=== PATIENT | male | born 1955 | race Caucasian/White ===

== ENCOUNTER → 2016-08-13 | Outpatient (CLI) | payer BC ==
[2016-04-05 15:15] VITALS: BP 113/71
[~2016-08-13] MED LIST: ACID1TAB14 PO; CEFD300C PO; DILT120C2 PO; DILT180C29 PO; HYDR-2762 PO; HYDR25CA PO; MESA400C PO; METO25TA4 PO; METR500T PO; MULT-246 PO; OMEP20TA63 PO; PRED20TA PO; TAMS0.4C97 PO; WARF5TAB7 PO
== END | disposition home or self-care (01) ==
LOC: SPEC 16:49
PROVIDERS: ATTEND Podiatrist Foot & Ankle Surgery
DX: L97.521 Non-pressure chronic ulcer of other part of left foot limited to breakdown of skin (principal)
CPT/HCPCS: 87071; 87075; 87205

== ENCOUNTER 2017-06-22 06:05 | Emergency (ER) | payer OTHER, BC ==
[2017-06-22 06:44] LABS: BILIRUBIN,URINE NEGATIVE (NEG); COLOR,URINE AMBER; GLUCOSE,URINE NEGATIVE (NEG); NITRITE,URINE NEGATIVE (NEG); PH,URINE 6.5; PROTEIN,URINE 30 mg/dL (NEG-TRACE); UROBILINOGEN,URINE 0.2 mg/dL (0.2 mg/dL)
[2017-06-22 06:53] LABS: ADD MAN DIFF? NO
[2017-06-22 07:04] LABS: BASO # 0.1 x10^3/uL (0.0-0.2); BASO % 1 % (0-3); EOS # 0.1 x10^3/uL (0.0-0.7); EOS % 2 % (0-3); HEMATOCRIT 39.3 % (39.0-53.0); LYMPH % 13 % (24-48); MEAN CORPUSCULAR HEMOGLOBIN 30 pg (25-35); MEAN CORPUSCULAR HGB CONC 33 g/dL (31-37); MEAN CORPUSCULAR VOLUME 89 fL (79-100); MONO % 13 % (0-9); NEUT # 5.4 x10^3uL (1.8-7.7); NEUT % 71 % (31-73); PLATELET COUNT 208 x10^3/uL (140-400); RED CELL DISTRIBUTION WIDTH 13.6 % (11.5-14.5); WHITE BLOOD COUNT 7.6 x10^3/uL (4.0-11.0)
[2017-06-22 07:15] LABS: ANION GAP 6 (6-14); BLOOD UREA NITROGEN 20 mg/dL (8-26); BUN/CREATININE RATIO 25 (6-20); CALCIUM 8.9 mg/dL (8.5-10.1); CARBON DIOXIDE 29 mmol/L (21-32); CHLORIDE 101 mmol/L (98-107); CREATININE 0.8 mg/dL (0.7-1.3); GFR 97.6; GLUCOSE 121 mg/dL (70-99); POTASSIUM 3.7 mmol/L (3.5-5.1); SODIUM 136 mmol/L (136-145)
[2017-06-22 07:17] LABS: BACTERIA,URINE FEW /HPF (0-FEW); CLARITY,URINE HAZY; RBC,URINE >40 /HPF (0-2); SQUAMOUS EPITHELIAL CELL,UR OCC /LPF
[2017-06-22 07:20] LABS: ALBUMIN 3.3 g/dL (3.4-5.0); ALBUMIN/GLOBULIN RATIO 0.8 (1.0-1.7); ALK PHOS 84 U/L (46-116); ALT (SGPT) 22 U/L (16-63); AST (SGOT) 17 U/L (15-37); TOTAL BILIRUBIN 0.3 mg/dL (0.2-1.0); TOTAL PROTEIN 7.2 g/dL (6.4-8.2)
[2017-06-22 07:32] LABS: INR 1.1 (0.8-1.1); PROTHROMBIN TIME PATIENT 13.8 SEC (11.7-14.0)
== END 2017-06-22 07:45 | disposition home or self-care (01) ==
LOC: ER 06:05
DX: N39.0 Urinary tract infection, site not specified (principal); I48.91 Unspecified atrial fibrillation; F41.9 Anxiety disorder, unspecified; F32.9 Major depressive disorder, single episode, unspecified; I10 Essential (primary) hypertension; N40.0 Benign prostatic hyperplasia without lower urinary tract symptoms; Z88.2 Allergy status to sulfonamides
CPT/HCPCS: 36415; 80053; 81001; 85025; 85610; 87086; 99284

== ENCOUNTER 2017-06-23 08:18 | Emergency (ER) | payer OTHER, BC ==
[2017-06-23] MEDS ORDERED: 0.9 % SODIUM CHLORIDE 10 ML DISP.SYRIN. IV ×2 (08:45)
[2017-06-23] MEDS ORDERED: CONTRAST GIVEN MC ×2 (09:15)
[2017-06-23] MEDS: IOHEXOL 300 MG/ML 100ML VIAL. IV ×2 (09:19)
[2017-06-23 09:22] LABS: ADD MAN DIFF? NO
[2017-06-23 09:28] LABS: CLARITY,URINE TURBID; COLOR,URINE RED; GLUCOSE,URINE NEGATIVE (NEG); PROTEIN,URINE 100 mg/dL (NEG-TRACE)
[2017-06-23 09:31] LABS: BASO # 0.1 x10^3/uL (0.0-0.2); BASO % 1 % (0-3); EOS # 0.1 x10^3/uL (0.0-0.7); EOS % 1 % (0-3); HEMOGLOBIN 13.5 g/dL (13.0-17.5); LYMPH # 1.1 x10^3/uL (1.0-4.8); LYMPH % 11 % (24-48); MEAN CORPUSCULAR HEMOGLOBIN 30 pg (25-35); MEAN CORPUSCULAR HGB CONC 34 g/dL (31-37); MEAN CORPUSCULAR VOLUME 87 fL (79-100); MONO % 10 % (0-9); NEUT # 7.8 x10^3uL (1.8-7.7); NEUT % 78 % (31-73); PLATELET COUNT 214 x10^3/uL (140-400); RED BLOOD COUNT 4.58 x10^6/uL (4.30-5.70); RED CELL DISTRIBUTION WIDTH 13.8 % (11.5-14.5)
[2017-06-23 09:43] LABS: RBC,URINE TNTC /HPF (0-2)
[2017-06-23 09:44] LABS: BACTERIA,URINE FEW /HPF (0-FEW)
[2017-06-23 09:50] LABS: ANION GAP 8 (6-14); BLOOD UREA NITROGEN 18 mg/dL (8-26); CALCIUM 9.2 mg/dL (8.5-10.1); CARBON DIOXIDE 28 mmol/L (21-32); CHLORIDE 102 mmol/L (98-107); CREATININE 0.8 mg/dL (0.7-1.3); GFR 97.6; GLUCOSE 110 mg/dL (70-99); POTASSIUM 4.1 mmol/L (3.5-5.1); SODIUM 138 mmol/L (136-145)
[2017-06-23] MEDS: IV NORMAL SALINE 1000ML BAG 1,000 ML IV ×2 (09:51)
[2017-06-23 09:56] LABS: ALBUMIN 3.4 g/dL (3.4-5.0); ALK PHOS 96 U/L (46-116); ALT (SGPT) 16 U/L (16-63); AST (SGOT) 17 U/L (15-37); CREATINE KINASE 134 U/L (39-308); DIRECT BILIRUBIN 0.1 mg/dL (0.0-0.2); TOTAL BILIRUBIN 0.4 mg/dL (0.2-1.0); TOTAL PROTEIN 7.7 g/dL (6.4-8.2)
== END 2017-06-23 11:19 | disposition home or self-care (01) ==
LOC: ER 08:18
DX: R31.9 Hematuria, unspecified (principal); N28.89 Other specified disorders of kidney and ureter; N32.89 Other specified disorders of bladder; I10 Essential (primary) hypertension; Z88.2 Allergy status to sulfonamides
CPT/HCPCS: 36415; 74177; 80048; 80076; 81001; 82550; 85025; 87086; 96360; 99285-25; J7030; Q9967

== ENCOUNTER → 2017-08-19 | Outpatient (CLI) | payer OTHER, BC | END | disposition home or self-care (01) | LOC: ECHO 10:36 | DX: Z01.810 Encounter for preprocedural cardiovascular examination (principal); I34.0 Nonrheumatic mitral (valve) insufficiency; I35.1 Nonrheumatic aortic (valve) insufficiency | CPT/HCPCS: 93306 ==

== ENCOUNTER 2017-11-18 09:44 | Inpatient (IN) | payer SELFPAY, BC, OTHER ==
[2017-11-18 10:02] LABS: ADD MAN DIFF? NO
[2017-11-18 10:05] LABS: BASO # 0.1 x10^3/uL (0.0-0.2); BASO % 1 % (0-3); EOS % 0 % (0-3); HEMATOCRIT 30.6 % (39.0-53.0); LYMPH # 2.1 x10^3/uL (1.0-4.8); LYMPH % 16 % (24-48); MEAN CORPUSCULAR HEMOGLOBIN 27 pg (25-35); MEAN CORPUSCULAR HGB CONC 33 g/dL (31-37); MEAN CORPUSCULAR VOLUME 82 fL (79-100); MONO # 1.4 x10^3/uL (0.0-1.1); MONO % 11 % (0-9); NEUT # 9.2 x10^3uL (1.8-7.7); NEUT % 72 % (31-73); PLATELET COUNT 552 x10^3/uL (140-400); RED BLOOD COUNT 3.72 x10^6/uL (4.30-5.70); RED CELL DISTRIBUTION WIDTH 15.1 % (11.5-14.5); WHITE BLOOD COUNT 12.9 x10^3/uL (4.0-11.0)
[2017-11-18] MEDS: IV NORMAL SALINE 500ML BAG 500 ML IV (10:06)
[2017-11-18] MEDS: dilTIAZem IV PUSH 25 MG/5 ML VIAL IVP (10:07)
[2017-11-18 10:14] LABS: ANION GAP 11 (6-14); BLOOD UREA NITROGEN 17 mg/dL (8-26); BUN/CREATININE RATIO 14 (6-20); CALCIUM 8.1 mg/dL (8.5-10.1); CARBON DIOXIDE 24 mmol/L (21-32); CHLORIDE 100 mmol/L (98-107); CREATININE 1.2 mg/dL (0.7-1.3); GLUCOSE 124 mg/dL (70-99); POTASSIUM 4.2 mmol/L (3.5-5.1); SODIUM 135 mmol/L (136-145)
[2017-11-18 10:18] LABS: ETHANOL < 10 mg/dL (0-10)
[2017-11-18 10:21] LABS: ALBUMIN 2.3 g/dL (3.4-5.0); ALBUMIN/GLOBULIN RATIO 0.5 (1.0-1.7); ALK PHOS 73 U/L (46-116); ALT (SGPT) 17 U/L (16-63); AST (SGOT) 11 U/L (15-37); TOTAL BILIRUBIN 0.2 mg/dL (0.2-1.0); TOTAL PROTEIN 6.6 g/dL (6.4-8.2)
[2017-11-18 10:24] LABS: TROPONINI < 0.017 ng/mL (0.000-0.055)
[2017-11-18 10:26] LABS: NT-PRO BNP 409 pg/mL (0-124)
[2017-11-18 10:56] LABS: INR 1.1 (0.8-1.1); PROTHROMBIN TIME PATIENT 13.2 SEC (11.7-14.0)
[2017-11-18] MEDS ORDERED: ACETAMINOPHEN 500 MG TABLET PO (12:15)
[2017-11-18] MEDS ORDERED: HYDROcodone/APAP 5/325MG 1 TAB TABLET PO (12:15)
[2017-11-18] MEDS ORDERED: hydrOXYzine PAMOATE 25 MG CAPSULE PO (12:15)
[2017-11-18] MEDS ORDERED: ONDANSETRON ODT 4 MG TAB.RAPDIS. PO (12:15)
[2017-11-18] MEDS ORDERED: ONDANSETRON PF 4 MG/2 ML VIAL. IV (12:15)
[2017-11-18] MEDS: METOPROLOL TART IMMED RELEASE 25 MG TABLET. PO (13:00)
[2017-11-18] MEDS: PANTOPRAZOLE 40 MG TABLET.DR. PO (13:23)
[2017-11-18] MEDS: MESALAMINE 400 MG CAP.DRTAB. PO ×2 (13:23→18:00)
[2017-11-18] MEDS: MULTIVITAMIN with MINERAL TABLET. PO (13:23)
[2017-11-18] MEDS: LACTOBACILLUS RHAMNOSUS GG 1 CAPSULE. PO (13:23)
[2017-11-18] MEDS: TAMSULOSIN 0.4 MG CAP.ER.24H. PO (13:23)
[2017-11-18] MEDS ORDERED: PHENAZOPYRIDINE HCL 200 MG PO (14:00)
[2017-11-18] MEDS: predniSONE 10 MG TABLET PO (15:09)
[2017-11-18] MEDS: FIDAXOMICIN 200 MG TABLET PO ×2 (15:09→21:17)
[2017-11-18 15:26] LABS: THYROID STIM HORMONE (TSH) 5.209 uIU/mL (0.358-3.74)
[2017-11-18 15:26] LABS: FREE T4 1.01 ng/dL (0.76-1.46)
[2017-11-18 15:59] LABS: % SAT IRON 6 % (15-34); IRON,SERUM 16 ug/dL (65-175)
[2017-11-18 16:24] LABS: VITAMIN-B12 > 2000 pg/mL (247-911)
[2017-11-18] MEDS: FERROUS SULFATE ORAL 300 MG/5 ML SOLUTION. PO (18:00)
[2017-11-18] MEDS: METOPROLOL SUCC 24HR ER 50 MG TAB.ER.24H. PO (20:59)
[2017-11-18] MEDS ORDERED: FIDAXOMICIN 200 MG TABLET PO (21:00)
[2017-11-18] MEDS: diphenhydrAMINE HCL 25 MG CAPSULE PO (23:40)
[2017-11-19] MEDS: HYDROcodone/APAP 7.5/325MG 1 TAB TABLET PO (00:50)
[2017-11-19] MEDS: LACTOBACILLUS RHAMNOSUS GG 1 CAPSULE. PO (08:21)
[2017-11-19] MEDS: MESALAMINE 400 MG CAP.DRTAB. PO ×2 (08:21→12:37)
[2017-11-19] MEDS: FIDAXOMICIN 200 MG TABLET PO (08:21)
[2017-11-19] MEDS: PANTOPRAZOLE 40 MG TABLET.DR. PO (08:22)
[2017-11-19] MEDS: FERROUS SULFATE ORAL 300 MG/5 ML SOLUTION. PO (08:22)
[2017-11-19] MEDS: MULTIVITAMIN with MINERAL TABLET. PO (08:23)
[2017-11-19] MEDS: predniSONE 10 MG TABLET PO (08:23)
[2017-11-19] MEDS: TAMSULOSIN 0.4 MG CAP.ER.24H. PO (08:23)
[2017-11-19] MEDS ORDERED: predniSONE 10 MG TABLET PO (09:00)
[2017-11-19] MEDS ORDERED: predniSONE 20 MG TABLET PO (09:00)
[2017-11-19] MEDS: SODIUM CHLORIDE 5% OPHTH SOLUTION 15ML BOTTLE. OU (11:10)
[2017-11-19 15:15] LABS: C DIFF BY PCR Negative (Negative)
[2017-11-20] MEDS ORDERED: predniSONE 20 MG TABLET PO (09:00)
[2017-11-21] MEDS ORDERED: predniSONE 20 MG TABLET PO (09:00)
== END 2017-11-19 14:15 | disposition home or self-care (01) | DRG 310 ==
LOC: ER 09:44 → 2 SOUTH 11:45
DX: I48.0 Paroxysmal atrial fibrillation (principal); E66.9 Obesity, unspecified; G62.9 Polyneuropathy, unspecified; I10 Essential (primary) hypertension; I48.2 Chronic atrial fibrillation; K21.9 Gastro-esophageal reflux disease without esophagitis; N40.0 Benign prostatic hyperplasia without lower urinary tract symptoms; D64.9 Anemia, unspecified; F32.9 Major depressive disorder, single episode, unspecified; F41.9 Anxiety disorder, unspecified; M19.90 Unspecified osteoarthritis, unspecified site; Z68.30 Body mass index [BMI] 30.0-30.9, adult; Z79.82 Long term (current) use of aspirin; Z86.718 Personal history of other venous thrombosis and embolism; Z86.73 Personal history of transient ischemic attack (TIA), and cerebral infarction without residual deficits; Z89.412 Acquired absence of left great toe; Z88.2 Allergy status to sulfonamides
CPT/HCPCS: 36415; 71045; 80053; 82607; 83540; 83550; 83735; 83880; 84439; 84443; 84484; 85025; 85610; 87324; 93005; 96374; 99285; 99285-25; G0480; J3490; J7040; J7512; Q0163

== ENCOUNTER → 2017-12-02 | Outpatient (CLI) | payer OTHER ==
[2017-12-02] MEDS: IOHEXOL 300 MG/ML 100ML VIAL. IV (08:48)
== END | disposition home or self-care (01) ==
LOC: CT 08:05
DX: Z01.84 Encounter for antibody response examination (principal); E83.59 Other disorders of calcium metabolism; N29 Other disorders of kidney and ureter in diseases classified elsewhere; N28.1 Cyst of kidney, acquired; I11.0 Hypertensive heart disease with heart failure; I50.31 Acute diastolic (congestive) heart failure; I48.2 Chronic atrial fibrillation; E66.9 Obesity, unspecified; K21.9 Gastro-esophageal reflux disease without esophagitis; D64.9 Anemia, unspecified; Z85.47 Personal history of malignant neoplasm of testis; Z86.718 Personal history of other venous thrombosis and embolism
CPT/HCPCS: 71260; 74160; Q9967

== ENCOUNTER 2018-04-06 11:41 | Day surgery (SDC) | payer OTHER ==
--- NOTE | 2018-04-06 10:25 | PDOC1 ---
History and Physical Date of Admission Date of Admission DATE: 04/06/18 TIME: 10:24 Identification/Chief Complaint Chief Complaint left 2 nd toe pain, osteomyelitis surgery today as outpt Past Medical History Past Medical History Past Medical History Cardiovascular: AFIB, HTN Pulmonary: Other CENTRAL NERVOUS SYSTEM: CVA, Periperal neuropathy GI: Other Heme/Onc: Anemia NOS, Cancer, Other Hepatobiliary: No pertinent hx Psych: Anxiety Musculoskeletal: Osteoarthritis Rheumatologic: No pertinent hx Infectious disease: No pertinent hx Renal/: Benign prostatic enlarg. Endocrine: No pertinent hx Past Surgical History Past Surgical History: Hernia Repair, Tonsillectomy, Other Family History Family History: Heart Disease Social History Smoke: No ALCOHOL: none Drugs: None Cardiovascular: AFIB, HTN, Other Pulmonary: No pertinent hx CENTRAL NERVOUS SYSTEM: CVA, Periperal neuropathy GI: Inflam bowel disease, Other Heme/Onc: Anemia NOS, Cancer, Other Hepatobiliary: No pertinent hx Psych: Anxiety Musculoskeletal: No pain Rheumatologic: No pertinent hx Infectious disease: No pertinent hx Renal/: Benign prostatic enlarg., Other Endocrine: No pertinent hx Past Surgical History Past Surgical History: Hernia Repair, Tonsillectomy, Other (r testicle ca 2003) Family History Family History: Heart Disease Social History Smoke: No ALCOHOL: occassional Drugs: None Current Medications Current Medications Current Medications Cefazolin Sodium/ Dextrose 50 ml @ 100 mls/hr 1X PREOP PRN IV PRIOR TO PROCEDURE; Start 04/06/18 at 06:00; Stop 04/06/18 at 18:00 Lidocaine HCl 20 ml STK-MED ONCE .ROUTE ; Start 04/06/18 at 10:07; Stop at 10:08; Status DC Povidone Iodine ( Betadine Oint) 28 pat STK-MED ONCE TP ; Start 04/06/18 at 10: 07; Stop 04/06/18 at 10:08; Status DC Dexamethasone Sodium Phosphate (Decadron) 4 mg STK-MED ONCE .ROUTE ; Start at 10:07; Stop 04/06/18 at 10:08; Status DC Bupivacaine HCl (Sensorcaine Mpf 0.5%) 30 ml STK-MED ONCE .ROUTE ; Start at 10:07; Stop 04/06/18 at 10:08; Status DC Active Scripts Active Metoprolol Tartrate 25 Mg Tablet 25 Mg PO BID Diltiazem 24HR Cd (Diltiazem Hcl) 180 Mg Cap.er.24h 180 Mg PO DAILY Reported Calcium Magnesium Caplet (Ca Carb & Gluc/Mag Ox & Gluc) 1 Each Tablet 1 Each PO DAILY Entyvio (Vedolizumab) 300 Mg Vial 1 Vial IV Q2WKS Probiotic (Lactobacillus Combo No.10) 1 Each Capsule 1 Each PO DAILY Florastor (Saccharomyces Boulardii) 250 Mg Capsule 250 Mg PO BID Uceris (Budesonide) 9 Mg Tabdr...er 9 Mg PO DAILY Apriso (Mesalamine) 0.375 Gm Cap.er.24h 4 Cap PO DAILY Aspirin 81 Mg Tab.chew 81 Mg PO DAILY Multi-Vitamin Daily (Multivitamin) 1 Each Tablet 1 Each PO DAILY Allergies Allergies: Coded Allergies: Sulfa (Sulfonamide Antibiotics) (Verified Allergy, Severe, Hives, 04/06/18 ) ROS Review of System 14 pt ros otherwise neg General: No: Chills, Night Sweats, Fatigue, Malaise, Appetite, Other PSYCHOLOGICAL ROS: No: Anxiety, Behavioral Disorder, Concentration difficultie , Decreased libido, Depression, Disorientation, Hallucinations, Hostility, Irritablity, Memory difficulties, Mood Swings, Obsessive thoughts, Physical abuse, Sexual abuse, Sleep disturbances, Suicidal ideation, Other Eyes: No Blurry vision, No Decreased vision, No Double vision, No Dry eyes, No Excessive tearing, No Eye Pain, No Itchy Eyes, No Loss of vision, No Photophobia , No Scotomata, No Uses contacts, No Uses glasses, No Other HEENT: No: Heacaches, Visual Changes, Hearing change, Nasal congestion, Nasal discharge, Oral lesions, Sinus pain, Sore Throat, Epistaxis, Sneezing, Snoring, Tinnitus, Vertigo, Vocal changes, Other ALLERGY AND IMMUNOLOGY: No: Hives, Insect Bite Sensitivity, Itchy/Watery Eyes, Nasal Congestion, Post Nasal Drip, Seasonal Allergies, Other Hematological and Lymphatic: YES: Blood Clots ENDOCRINE: No: Breast Changes, Galactorrhea, Hair Pattern Changes, Hot Flashes , Malaise/lethargy, Mood Swings, Palpitations, Polydipsia/polyuria, Skin Changes , Temperature Intolerance, Unexpected Weight Changes, Other Respiratory: No: Cough, Hemoptysis, Orthopnea, Pleuritic Pain, Shortness of breath, SOB with excertion, Sputum Changes, Stridor, Tachypnea, Wheezing, Other Cardiovascular: No Chest Pain, No Palpitations, No Orthopnea, No Paroxysmal Noc. Dyspnea, No Edema, No Lt Headedness, No Other Gastrointestinal: No Nausea, No Vomiting, No Abdominal Pain, No Diarrhea, No Constipation, No Melena, No Hematochezia, No Other Musculoskeletal: Yes Gait Disturbance, Yes Joint Pain Neurological: Yes Gait Disturbance Skin: Yes Skin Lesion Changes Physical Exam Physical Exam Physical Exam General: Alert, Oriented X3, Cooperative, No acute distress HEENT: Atraumatic, PERRLA, EOMI Lungs: Clear to auscultation, Normal air movement Heart: , iRRR, no thrills, no rubs, no gallops Cardiovascular: S1, S2 Abdomen: Normal bowel sounds, Soft, No tenderness, No hepatosplenomegaly, No masses Male Genitals Exam: normal genitalia, normal prostate Extremities: No clubbing, No cyanosis, left 2nd toe swelling mild Skin: Neuro: , Normal speech, Normal tone, Cranial nerves 3-12 NL, Psych/Mental Status: Mental status NL, Mood NL General: Alert, Oriented X3, No acute distress HEENT: Atraumatic, PERRLA, EOMI Lungs: Clear to auscultation, Normal air movement Heart: no thrills, no murmurs Breasts: Not examined Abdomen: Normal bowel sounds, Soft Rectal Exam: not examined Extremities: No cyanosis Neuro: Normal speech, Cranial nerves 3-12 NL Psych/Mental Status: Mental status NL, Mood NL Images Images Right leg venous Doppler study: Clinical indications: Right leg swelling and pain. Findings: Duplex sonography (including chirinos scale evaluation and color flow and waveform spectral analysis) of the proximal aspect of the greater saphenous vein and proximal aspect of the profunda femoral vein and the entire length of the common femoral and superficial femoral and popliteal veins and the tibioperoneal trunk and the proximal aspect of the posterior tibial and peroneal veins of the right leg was performed. The posterior tibial veins are noncompressible without color flow consistent with occlusive thrombosis. In addition, thrombosis within the greater saphenous vein within the mid thigh and proximal calf. It is [with and the distal thigh. Impression: DVT of the posterior tibial veins. Superficial thrombophlebitis of the greater saphenous vein. Left leg venous Doppler study: Clinical indications: Left leg swelling and pain. Findings: Duplex sonography (including chirinos scale evaluation and color flow and waveform spectral analysis) of the proximal aspect of the greater saphenous vein and the proximal aspect of the profunda femoral vein and the entire length of the common femoral and superficial femoral and popliteal veins and the tibioperoneal trunk and the proximal aspect of the posterior tibial and peroneal veins of the left leg was performed. There is occlusive thrombosis within the posterior tibial veins and nonocclusive thrombosis within the left popliteal vein. Impression: DVT of the popliteal vein and the posterior tibial veins. VTE Prophylaxis Ordered VTE Prophylaxis Devices: No VTE Pharmacological Prophylaxi: Yes Assessment/Plan Assessment/Plan impression 1. acute osteomyelitis left 2nd toe 2. obesity 3. hx a=-fib 4. hx bph 5. hx ulcerative colitis 6. osteoarthritis 7. hx depression, anxiety 8. hx multiple toe partial amputations 9. hx remote DVT of the popliteal vein and the posterior tibial veins. plan podiatry planned left 2nd toe amputation today, appears at low risk for surgical complications cont current meds cbc, bmp today pending scd's FULBRIGHT,TARA Al MD Apr 06, 2018 10:25
[~2018-04-06 11:41] MED LIST changes: +ASPI-630 PO; +BUDE9TAB PO; +BUPIVACAINE MPF 0.5% 30 ML VIAL. ONE; +CA C1TAB58 PO; +CIPR500T94 PO; +DEXAMETHASONE SOD PHOS 4 MG/ML VIAL ONE; +FIDA200T PO; -HYDR-2762 PO; +HYDR-2765 PO; +LACT1CAP29 PO; +LIDOCAINE 1% 20 ML VIAL. ONE; +MESA0.372 PO; +PHEN-318 PO; +POVIDONE-IODINE 10% TOPICAL OINTMENT 28GM TUBE. TP ONE; +SACC250C PO; +VEDO300V IV; +WARF-31 PO; -WARF5TAB7 PO
[2018-04-06 12:16] LABS: BASO # 0.1 x10^3/uL (0.0-0.2); BASO % 1 % (0-3); EOS # 0.1 x10^3/uL (0.0-0.7); EOS % 0 % (0-3); HEMATOCRIT 42.6 % (39.0-53.0); HEMOGLOBIN 14.2 g/dL (13.0-17.5); LYMPH # 1.8 x10^3/uL (1.0-4.8); LYMPH % 12 % (24-48); MEAN CORPUSCULAR HEMOGLOBIN 28 pg (25-35); MEAN CORPUSCULAR HGB CONC 33 g/dL (31-37); MEAN CORPUSCULAR VOLUME 85 fL (79-100); MONO # 0.9 x10^3/uL (0.0-1.1); MONO % 6 % (0-9); NEUT # 12.2 x10^3uL (1.8-7.7); NEUT % 81 % (31-73); PLATELET COUNT 237 x10^3/uL (140-400); RED BLOOD COUNT 5.02 x10^6/uL (4.30-5.70); RED CELL DISTRIBUTION WIDTH 17.8 % (11.5-14.5); WHITE BLOOD COUNT 15.1 x10^3/uL (4.0-11.0)
[2018-04-06 12:26] LABS: CALCIUM 9.2 mg/dL (8.5-10.1); CREATININE 0.8 mg/dL (0.7-1.3); GFR 97.3; POTASSIUM 3.8 mmol/L (3.5-5.1)
[2018-04-06] MEDS ORDERED: CHOL500062 SL (12:32)
[2018-04-06] MEDS ORDERED: MELA3TAB2 PO (12:33)
[2018-04-06] MEDS ORDERED: IV RINGERS,LACTATED 1000ML 1,000 ML IV SCH (12:45)
[2018-04-06] MEDS ORDERED: fentaNYL PF VIAL 100 MCG/2 ML VIAL ONE (13:38)
[2018-04-06] MEDS ORDERED: MIDAZOLAM HCL/PF 2 MG/2 ML VIAL. ONE (13:38)
[2018-04-06] MEDS ORDERED: LIDOCAINE 2% PF Vial for OR 5 ML VIAL. ONE (13:41)
[2018-04-06] MEDS ORDERED: PROPOFOL 20 ML IV ONE (13:41)
--- NOTE | 2018-04-06 14:31 | PDOC4 ---
OPERATIVE NOTE: Surgeon: Rachel Pre operative diagnosis: recurrent non healing ulceration with osteomyelitis 2nd toe left foot Post operative diagnosis: Same Procedure: Phalangectomy proximal phalanx 2nd toe left foot Anesthesia: MAC with local Hemostasis: Left ankle tourniquet at 250mmHg EBL 1mL Materials: no drains Pathology specimen: 2nd toe left foot, intraoperative wound culture aerobic/ anaerobic Intraoperative diagnosis. No proximal sinus tract. no signs of infection to 2nd metatarsal head left foot Patient tolerated both anethesia and procedure well transferred to PACU with VSS and VSI to left foot VALERIA NIÑO DPM Apr 06, 2018 14:31
--- NOTE | 2018-04-06 14:49 | OP ---
DATE OF SURGERY: 04/06/2018 PREOPERATIVE DIAGNOSIS: Chronic recurrent ulceration, second digit with osteomyelitis, left foot. POSTOPERATIVE DIAGNOSIS: Chronic recurrent ulceration, second digit with osteomyelitis, left foot. PROCEDURE: Phalangectomy of the second digit, left foot of the proximal phalanx. SURGEON: Alfred Ramos DPM. ANESTHESIA: MAC with local. HEMOSTASIS: Left ankle tourniquet at 250 mmHg. INDICATIONS: The patient is a 62-year-old male who was seen for a chronic recurrent ulceration to the second digit of the left foot. It was noted to be erythema, edema and pustular drainage with bone exposed. X-ray showed some distal resorption of the remaining proximal phalanx and thus recommended proceed with amputation of the second digit of the left foot phalangectomy of remaining proximal phalanx. Discussed the possible benefits, risks and complications to include delayed healing, nonhealing, need for further surgery, infection, damage to nerves or blood vessels, chance for lesions, chronic pain, gout. All questions were answered. No guarantees made. DESCRIPTION OF PROCEDURE: The patient was transported to the operating room via cart and placed on the operating room table in supine position. Final verification of the patient's surgery and limb was performed. Timeout was taken. He was given IV Ancef preoperatively. A second ray block was administered with a 1:1 mixture of 1% lidocaine plain and 0.5% Marcaine plain, 10 mL total. The left foot was then prepped and draped in the usual aseptic manner and applied a well-padded tourniquet to the left ankle. Attention was directed to the left foot. An Esmarch bandage was used to exsanguinate the left foot and the left ankle tourniquet was inflated to 250 mmHg. Attention was directed to the second digit. Two converging semi-curvilinear incisions were made from the base of the dorsal second toe extending along the medial and lateral aspects of the second digit and converging proximally and plantarly. The second digit the patient was moving and stated he had pain, thus administered an additional 10 mL to the second ray for additional anesthesia. The second digit was disarticulated at the metatarsophalangeal joint and the toe was sent to pathology, obtained an intraoperative wound culture, aerobic and anaerobic. The wound was then copiously irrigated with sterile saline. Small vessels were cauterized and the skin incision was reapproximated with 3-0 Vicryl and 4-0 nylon. Postop dressing was administered with Betadine solution, Adaptic gauze, 4 x 4s, Kerlix bandage, and an Raymond bandage compression wrap starting at the toes and extending to the tibial tuberosity. The patient is to keep the dressing clean, dry and intact until followup clinic appointment 04/11/2018. He is scheduled appointment. The patient will be given hydrocodone, [place] for pain and the patient to be minimal weightbearing in a surgical shoe. The patient states he has his own surgical shoe. The patient tolerated both anesthesia and procedure well and was transported to the PACU with stable vital signs. The tourniquet had been deflated and good perfusion was noted to all the remaining digits. Postop instructions are in the chart. ALFRED RAMOS DPM DR: LUIS/kobi JOB#: [id number] / [id number]
[2018-04-06] MEDS ORDERED: AMOX1TAB61 PO (14:51)
[2018-04-06] MEDS ORDERED: HYDR-3164 PO (14:51)
[2018-04-06 14:52] VITALS: BP 114/60
[2018-04-06] MEDS ORDERED: HYDROcodone/APAP 5/325MG 1 TAB TABLET PO ONE (15:00)
--- NOTE | 2018-04-06 15:29 | RAD ---
FOOT LEFT 3V Clinical Indication: 2ND TOE AMPUTATION Comparison: None. Findings: Amputation of the phalanges of the second toe. There is subcutaneous air. Old amputation of the third toe distal to the distal neck of the proximal phalanx. Old amputation of the distal phalanx of the great toe. Tiny well-corticated bone fragments near the tip of the great toe proximal phalanx. No bony erosion is identified. Hammertoe deformities of the third, fourth, and fifth toes. IMPRESSION: 1. Amputation of second toe. 2. No bony erosion is seen. Electronically signed by: Emerson Menendez MD (04/06/2018 3:25 PM) [id number]
--- NOTE | 2018-04-12 09:13 | PATHOLOGY ---
[facility] Accession Number: [id number] . 01 Material submitted: . LEFT SECOND TOE . 01 Clinical history: . Infection . 02 Diagnosis: Left second toe amputation: - Inflammatory process involving superficial and deep soft tissues with bony destruction of distal toe, comprised of a cavity containing fibrin and acute inflammatory cells with surrounding granulation tissue. - Proximal margin negative for acute cellulitis and osteomyelitis. (JPM:tracey; 04/11/2018) QMS/04/11/2018 . 02 Electronically signed: . Weston Olmos MD, Pathologist NPI- [id number] . 01 Gross description: . Received in formalin labeled "Gustavo Meza," and additionally labeled on the requisition as, "left second toe amputation," is a digit amputation specimen measuring 4.8 x 2.9 x 2.7 cm in greatest dimensions. The bone margin is smooth and concave in appearance, consistent with disarticulation. The nail is absent. The distal aspect epidermal surface displays a granular, egan-brown macule measuring 0.6 x 0.6 cm that extends to within 2.0 cm of the nearest soft tissue margin. The bone and soft tissue margins are inked black. Sectioning reveals a hemorrhagic soft tissue cavity underlying the distal aspect macule measuring 0.5 x 0.4 x 0.3 cm. A full-thickness cross-section is submitted proximal to distal in cassettes A1 and A2, following decalcification. Additional patient care representative sections of the distal aspect macule and underlying hemorrhagic cavity are submitted in cassette A3. (DAC; 04/10/2018) XDC/XDC . 02 Pathologist provided ICD-10: M89.8X7, L92.8 . 02 CPT . 607850, 253997 Specimen Comment: A courtesy copy of this report has been sent to Specimen Comment: [phone], . Specimen Comment: Report sent to / DR NÚÑEZ Specimen Comment: A duplicate report has been generated due to demographic updates. Performed at: 01 [facility] [address] [facility] [address], [place] [id number] MD Gera Ayala MD Phone: [phone] Performed at: 02 [facility] [address] [place] [address], [place] [id number] MD Weston Olmos MD Phone: [phone]
== END 2018-04-06 16:03 | disposition home or self-care (01) ==
LOC: SURG 11:41
PROVIDERS: ATTEND Podiatrist Foot & Ankle Surgery
DX: M86.272 Subacute osteomyelitis, left ankle and foot (principal); L92.8 Other granulomatous disorders of the skin and subcutaneous tissue; M89.8X7 Other specified disorders of bone, ankle and foot; L97.511 Non-pressure chronic ulcer of other part of right foot limited to breakdown of skin; G60.8 Other hereditary and idiopathic neuropathies; I48.91 Unspecified atrial fibrillation; I10 Essential (primary) hypertension; G62.9 Polyneuropathy, unspecified; D64.9 Anemia, unspecified; M19.90 Unspecified osteoarthritis, unspecified site; N40.0 Benign prostatic hyperplasia without lower urinary tract symptoms; E66.9 Obesity, unspecified; F32.9 Major depressive disorder, single episode, unspecified; F41.9 Anxiety disorder, unspecified; Z79.2 Long term (current) use of antibiotics; Z98.890 Other specified postprocedural states; Z86.73 Personal history of transient ischemic attack (TIA), and cerebral infarction without residual deficits; Z82.49 Family history of ischemic heart disease and other diseases of the circulatory system; Z88.2 Allergy status to sulfonamides; Z79.82 Long term (current) use of aspirin; Z79.899 Other long term (current) drug therapy; Z91.040 Latex allergy status; Z68.34 Body mass index [BMI] 34.0-34.9, adult
CPT/HCPCS: 28820; 36415; 73630; 80048; 85025; 87071; 87075; 87186; 88305; 88311; A7015; J0690; J2001; J2250; J2704; J3010; J3490; J1100

== ENCOUNTER 2018-10-05 09:39 | Day surgery (SDC) | payer MEDICARE, OTHER ==
[~2018-10-05] VITALS: Ht 165.1 cm; Wt 126.1 kg
[~2018-10-05 09:39] MED LIST changes: +AMOX1TAB61 PO; +ASTA4CAP PO; +B12 SL; +CHOL500062 SL; +CURC10PO MC; +GING550C2 PO; +HYAL1CAP PO; +HYDR-3164 PO; +HYDROmorphone 2 MG/ML VIAL IV PRN; +IODI150T PO; +IV RINGERS,LACTATED 1000ML 1,000 ML IV SCH; +KRIL500C PO; +LIDOCAINE 1% PF 2 ML VIAL. ID PRN; +MELA3TAB2 PO; +MORPHINE SULFATE 2 MG/ML VIAL. IV PRN; +ONDANSETRON PF 4 MG/2 ML VIAL. IV PRN; +PAPA100T PO; +PROCHLORPERAZINE 10 MG/2 ML VIAL. IV PRN; +PROSTATE REVIVE PO; +UBID100C26 PO; +VITA100022 PO; +[UNRECOGNIZED DRUG - CODE] PO; +[UNRECOGNIZED DRUG - OTHER]; +beet root; +fentaNYL PF VIAL 100 MCG/2 ML VIAL IV PRN; +instaflex; +nattokinase
[2018-10-05 10:22] LABS: BASO # 0.1 x10^3/uL (0.0-0.2); BASO % 1 % (0-3); EOS # 0.3 x10^3/uL (0.0-0.7); EOS % 3 % (0-3); HEMATOCRIT 40.1 % (39.0-53.0); HEMOGLOBIN 13.5 g/dL (13.0-17.5); LYMPH % 22 % (24-48); MEAN CORPUSCULAR HEMOGLOBIN 30 pg (25-35); MEAN CORPUSCULAR HGB CONC 34 g/dL (31-37); MEAN CORPUSCULAR VOLUME 90 fL (79-100); MONO # 0.8 x10^3/uL (0.0-1.1); MONO % 9 % (0-9); NEUT # 5.7 x10^3uL (1.8-7.7); NEUT % 65 % (31-73); PLATELET COUNT 268 x10^3/uL (140-400); RED BLOOD COUNT 4.47 x10^6/uL (4.30-5.70); RED CELL DISTRIBUTION WIDTH 13.5 % (11.5-14.5); WHITE BLOOD COUNT 8.9 x10^3/uL (4.0-11.0)
--- NOTE | 2018-10-05 10:46 | PDOC1 ---
History and Physical Date of Admission Date of Admission DATE: 10/05/18 TIME: 10:26 Identification/Chief Complaint Chief Complaint Hammertoe History of Present Illness History of Present Illness Mr Meza is a pleasant 62 year old male with PMHx Testicular ca s/p orchie ctomy, DVT s/p IVC filter, Ulcerative colitis, and atrial fibrillation, follows with Dr. Pollock, for chronic A. fib, previously on OAC but not anymore after hemorrhagic CVA years ago,who p/w pre op evaluation for appt with podiatry today for hammertoe of 5th toe right foot which has been bothering him for some time. Has had good f/u with cardiology, less than 2% afib burden on ASA not OAC due to his prior hemorrhagic CVA, is s/p IVC filter for DVT history. He has no complaints other than right pinky toe pain today, has been compliant with his medications Past Medical History Cardiovascular: AFIB, HTN, Other Pulmonary: No pertinent hx CENTRAL NERVOUS SYSTEM: CVA, Periperal neuropathy GI: Inflam bowel disease, Other Heme/Onc: Anemia NOS, Cancer, Other Hepatobiliary: No pertinent hx Psych: Anxiety Musculoskeletal: No pain Rheumatologic: No pertinent hx Infectious disease: No pertinent hx Renal/: Benign prostatic enlarg., Other Endocrine: No pertinent hx Past Surgical History Past Surgical History: Hernia Repair, Tonsillectomy, Other Family History Family History: Heart Disease Social History Smoke: No ALCOHOL: none Drugs: None Current Medications Current Medications Current Medications Ondansetron HCl (Zofran) 4 mg PRN Q6HRS PRN IV NAUSEA/VOMITING; Start 09/28/18 at 07:00; Stop 09/28/18 at 20:00; Status DC Fentanyl Citrate (Fentanyl 2ml Vial) 25 mcg PRN Q5MIN PRN IV MILD PAIN 1-3; Start 09/28/18 at 07:00; Stop 09/28/18 at 20:00; Status DC Fentanyl Citrate (Fentanyl 2ml Vial) 50 mcg PRN Q5MIN PRN IV MODERATE TO SEVERE PAIN; Start 09/28/18 at 07:00; Stop 09/28/18 at 20:00; Status DC Morphine Sulfate (Morphine Sulfate) 1 mg PRN Q10MIN PRN IV SEVERE PAIN 7-10; Start 09/28/18 at 07:00; Stop 09/28/18 at 20:00; Status DC Ringer's Solution 1,000 ml @ 30 mls/hr Q24H IV ; Start 09/28/18 at 07:00; Stop 09/28/18 at 18:59; Status DC Lidocaine HCl (Xylocaine-Mpf 1% 2ml Vial) 2 ml PRN 1X PRN ID PRIOR TO IV START; Start 09/28/18 at 07:00; Stop 09/28/18 at 20:00; Status DC Hydromorphone HCl (Dilaudid) 0.5 mg PRN Q10MIN PRN IV SEV PAIN, Second choice; Start 09/28/18 at 07:00; Stop 09/28/18 at 20:00; Status DC Prochlorperazine Edisylate (Compazine) 5 mg PACU PRN PRN IV NAUSEA, MRX1; Start 09/28/18 at 07:00; Stop 09/28/18 at 20:00; Status DC Ondansetron HCl (Zofran) 4 mg PRN Q6HRS PRN IV NAUSEA/VOMITING; Start 10/05/18 at 07:00; Stop 10/06/18 at 06:59 Fentanyl Citrate (Fentanyl 2ml Vial) 25 mcg PRN Q5MIN PRN IV MILD PAIN 1-3; Start 10/05/18 at 07:00; Stop 10/06/18 at 06:59 Fentanyl Citrate (Fentanyl 2ml Vial) 50 mcg PRN Q5MIN PRN IV MODERATE TO SEVERE PAIN; Start 10/05/18 at 07:00; Stop 10/06/18 at 06:59 Morphine Sulfate (Morphine Sulfate) 1 mg PRN Q10MIN PRN IV SEVERE PAIN 7-10; Start 10/05/18 at 07:00; Stop 10/06/18 at 06:59 Ringer's Solution 1,000 ml @ 30 mls/hr Q24H IV Last administered on 10/05/18at 10:24; Start 10/05/18 at 07:00; Stop 10/05/18 at 18:59 Hydromorphone HCl (Dilaudid) 0.5 mg PRN Q10MIN PRN IV SEV PAIN, Second choice; Start 10/05/18 at 07:00; Stop 10/06/18 at 06:59 Prochlorperazine Edisylate (Compazine) 5 mg PACU PRN PRN IV NAUSEA, MRX1; Start 10/05/18 at 07:00; Stop 10/06/18 at 06:59 Levofloxacin/ Dextrose 100 ml @ 100 mls/hr 1X PREOP PRN IV PRIOR TO PROCEDURE; Start 10/05/18 at 06:00; Stop 10/05/18 at 18:00 Lidocaine HCl 20 ml STK-MED ONCE .ROUTE ; Start 10/05/18 at 09:21; Stop 10/05/18 at 10:21; Status DC Bupivacaine HCl (Sensorcaine Mpf 0.5%) 30 ml STK-MED ONCE .ROUTE ; Start 10/05/18 at 09:21; Stop 10/05/18 at 10:21; Status DC Povidone Iodine ( Betadine Oint) 28 pat STK-MED ONCE TP ; Start 10/05/18 at 09:23; Stop 10/05/18 at 10:23; Status DC Dexamethasone Sodium Phosphate (Decadron) 4 mg STK-MED ONCE .ROUTE ; Start 10/05/18 at 09:23; Stop 10/05/18 at 10:24; Status DC Active Scripts Active Metoprolol Tartrate 25 Mg Tablet 25 Mg PO BID Diltiazem 24HR Cd (Diltiazem Hcl) 180 Mg Cap.er.24h 180 Mg PO DAILY Reported Hyaluronic Acid 40 Mg Capsule (Hyalur Ac/Chond Sul/Colg Ii/Aa) 1 Each Capsule 100 Mg PO DAILY Astaxanthin 4 Mg Capsule 12 Mg PO DAILY [prostate revive] PO DAILY Coq-10 (Ubidecarenone) 100 Mg Capsule 100 Mg PO DAILY Garlic 1,500 Mg Capsule 5,000 Mcg PO DAILY Any Root 550 Mg Capsule 550 Mg PO BID Vitamin E (Vitamin E Acetate) 1,000 Unit Capsule 650 Unit PO DAILY [robert c] 1,000 Mg DAILY Papaya (Papain) 100 Mg Tablet 0 PO DAILY Krill Oil 500 Mg Capsule 350 Mg PO DAILY KRILL PLUS COD LIVER OIL [instaflex] [beet root] Kelp (Iodine) 150 Mcg Tablet 600 Mcg PO DAILY [nattokinase] Curcumin 10 Gm Powder 1,000 Mg MC BID [B12] 1,500 Mcg SL DAILY Melatonin 3 Mg Tablet 10 Mg PO HS Vitamin D3 (Cholecalciferol (Vitamin D3)) 5,000 Unit Tab.rapdis 5,000 Unit SL DAILY Calcium Magnesium Caplet (Ca Carb & Gluc/Mag Ox & Gluc) 1 Each Tablet 1 Each PO DAILY Entyvio (Vedolizumab) 300 Mg Vial 1 Vial IV .[id number] Probiotic (Lactobacillus Combo No.10) 1 Each Capsule 1 Each PO BID Florastor (Saccharomyces Boulardii) 250 Mg Capsule 250 Mg PO BID Apriso (Mesalamine) 0.375 Gm Cap.er.24h 4 Cap PO DAILY Aspirin 81 Mg Tab.chew 81 Mg PO DAILY Multi-Vitamin Daily (Multivitamin) 1 Each Tablet 1 Each PO DAILY Allergies Allergies: Coded Allergies: Sulfa (Sulfonamide Antibiotics) (Verified Allergy, Severe, Hives, 10/05/18) ROS General: No: Chills, Night Sweats, Fatigue, Malaise, Appetite, Other PSYCHOLOGICAL ROS: No: Anxiety, Behavioral Disorder, Concentration difficultie, Decreased libido, Depression, Disorientation, Hallucinations, Hostility, Irritablity, Memory difficulties, Mood Swings, Obsessive thoughts, Physical abuse, Sexual abuse, Sleep disturbances, Suicidal ideation, Other Eyes: No Blurry vision, No Decreased vision, No Double vision, No Dry eyes, No Excessive tearing, No Eye Pain, No Itchy Eyes, No Loss of vision, No Photophobia, No Scotomata, No Uses contacts, No Uses glasses, No Other HEENT: No: Heacaches, Visual Changes, Hearing change, Nasal congestion, Nasal discharge, Oral lesions, Sinus pain, Sore Throat, Epistaxis, Sneezing, Snoring, Tinnitus, Vertigo, Vocal changes, Other ALLERGY AND IMMUNOLOGY: No: Hives, Insect Bite Sensitivity, Itchy/Watery Eyes, Nasal Congestion, Post Nasal Drip, Seasonal Allergies, Other Hematological and Lymphatic: No: Bleeding Problems, Blood Clots, Blood Transfusions, Brusing, Night Sweats, Pallor, Swollen Lymph Nodes, Other ENDOCRINE: No: Breast Changes, Galactorrhea, Hair Pattern Changes, Hot Flashes, Malaise/lethargy, Mood Swings, Palpitations, Polydipsia/polyuria, Skin Changes, Temperature Intolerance, Unexpected Weight Changes, Other Breast: No New/Changing Breast Lumps, No Nipple changes, No Nipple discharge, No Other Respiratory: No: Cough, Hemoptysis, Orthopnea, Pleuritic Pain, Shortness of breath, SOB with excertion, Sputum Changes, Stridor, Tachypnea, Wheezing, Other Cardiovascular: No Chest Pain, No Palpitations, No Orthopnea, No Paroxysmal Noc. Dyspnea, No Edema, No Lt Headedness, No Other Gastrointestinal: No Nausea, No Vomiting, No Abdominal Pain, No Diarrhea, No Constipation, No Melena, No Hematochezia, No Other Genitourinary: No Dysuria, No Frequency, No Incontinence, No Hematuria, No Retention, No Discharge, No Urgency, No Pain, No Flank Pain, No Other, No , No , No , No , No , No , No Musculoskeletal: No Gait Disturbance, No Joint Pain, No Joint Stiffness, No Joint Swelling, No Muscle Pain, No Muscular Weakness, No Pain In:, No Swelling In:, No Other Neurological: No Behavorial Changes, No Bowel/Bladder ControlChng, No Confusion, No Dizziness, No Gait Disturbance, No Headaches, No Impaired Coord/balance, No Memory Loss, No Numbness/Tingling, No Seizures, No Speech Problems, No Tremors, No Visual Changes, No Weakness, No Other Skin: No Dry Skin, No Eczema, No Hair Changes, No Lumps, No Mole Changes, No Mottling, No Nail Changes, No Pruritus, No Rash, No Skin Lesion Changes, No Other, No Acne Physical Exam General: Alert, Oriented X3, Cooperative, No acute distress HEENT: Atraumatic, PERRLA, EOMI, Mucous membr. moist/pink Lungs: Clear to auscultation, Normal air movement Heart: S1S2, RRR Rectal Exam: not examined Extremities: No clubbing, No cyanosis, No edema, Normal pulses, Other (right 5th toe slightly red, not warm or tender, discoloration medially previously noted) Skin: No rashes, No breakdown, No significant lesion Neuro: Normal gait, Normal speech, Strength at 5/5 X4 ext, Normal tone, Sensation intact, Cranial nerves 3-12 NL, Reflexes 2+ Psych/Mental Status: Mental status NL, Mood NL Vitals Vitals Vital Signs Date Time Temp Pulse Resp B/P (MAP) Pulse Ox O2 Delivery O2 Flow Rate FiO2 10/05/18 10:11 97.2 48 16 142/68 97 Room Air 97.2 Images Images ECHO - "The left ventricular systolic function is normal The Ejection Fraction is 55-60%. There is normal LV segmental wall motion. The left atrium is moderately dilated. Mild aortic regurgitation. Trace mitral regurgitation. The ascending aorta is mildly dilated at 4.2 cm. There is no evidence of significant pericardial effusion." VTE Prophylaxis Ordered VTE Prophylaxis Devices: Yes VTE Pharmacological Prophylaxi: No Assessment/Plan Assessment/Plan A/P: Right foot lety - Dr. Ramos to see him, wound care saw, but he still has surgical dressing. Afib - Cont BB and CCB, check electrolytes prior to surgery. EKG reviewed HTN - cont meds, took BB this morning Ulcerative colitis - stable on meds, entyvio every 8 weeks H/O hemorrhagic CVA - he is higher risk for ablation or cardioversion based on the fact he cannot tolerate OAC, he will d/w cardiology whom he has seen recently with good f/u FEN - NPO PPX - SCDs FULL CODE No further testing for outpatient surgery, ok to proceed in a moderate cardiac risk patient already on treatment with appropriate medications for a low risk procedure. JANENE DUKE MD October 05, 2018 10:46
[2018-10-05 10:51] LABS: CREATININE 0.9 mg/dL (0.7-1.3); GFR 84.7; POTASSIUM 4.2 mmol/L (3.5-5.1)
[2018-10-05 10:56] LABS: ALBUMIN 3.5 g/dL (3.4-5.0); ALBUMIN/GLOBULIN RATIO 0.8 (1.0-1.7); TOTAL BILIRUBIN 0.3 mg/dL (0.2-1.0); TOTAL PROTEIN 7.8 g/dL (6.4-8.2)
[2018-10-05] MEDS ORDERED: PROPOFOL 20 ML IV ONE ×4 (11:18→11:58)
[2018-10-05] MEDS ORDERED: LIDOCAINE 2% PF 5 ML VIAL. ONE (11:18)
[2018-10-05 11:20] LABS: C-REACTIVE PROTEIN 9.6 mg/L (0-3.3)
--- NOTE | 2018-10-05 11:42 | PDOC4 ---
OPERATIVE NOTE: SURGEON: RENAY PRE OPERATIVE DIAGNOSIS: HAMMER TOE 5TH RIGHT FOOT POST OP DX SAME PROCEDURE: ARTHROPLASTY 5TH TOE RIGHT FOOT ANESTHESIA MAC WITH LOCAL HEMOSTASIS RIGHT ANKLE TOURNIQUET AT 250MMHG EBL LESS THAN 1ML MATERIALS NONE INTRAOPERATIVE FINDINGS. WOUND TO 5TH DIGIT PIPJ EXCISED BONE IS FIRM with noted hypertrophy of lateral head of proximal phalanx. Note thickening of joint capsule SPECIMEN 5TH TOE PROXIMAL PHALANX to micro and pathology PATIENT TOLERATED ANESTHESIA AND PROCEDURE WELL TRANSFERRED TO PACU WITH VSS AND VSI RIGHT FOOT VALERIA NIÑO DPM October 05, 2018 11:42
[2018-10-05] MEDS ORDERED: LEVO750T5 PO (12:38)
[2018-10-05] MEDS ORDERED: HYDR-3164 PO (12:38)
--- NOTE | 2018-10-05 13:19 | RAD ---
Three-view right foot study Clinical indications: Status post arthroplasty of the fifth digit FINDINGS: Postoperative changes related to arthroplasty of the fifth proximal phalanx is evident. Postoperative changes related to amputation of the first second and third digits is seen. No fracture line is evident. No dislocation or lytic process is seen. IMPRESSION: Fifth digit arthroplasty. Electronically signed by: Akbar Crabtree MD (10/05/2018 1:15 PM) [id number]
[2018-10-05 13:40] VITALS: BP 147/75
--- NOTE | 2018-10-05 16:28 | OP ---
DATE OF SURGERY: 10/05/2018 PREOPERATIVE DIAGNOSES: Hammertoe with chronic wound to the proximal interphalangeal joint of the right fifth toe. POSTOPERATIVE DIAGNOSES: Hammertoe with chronic wound to the proximal interphalangeal joint of the right fifth toe. PROCEDURE: Arthroplasty of the fifth toe, right foot. SURGEON: Alfred Ramos DPM. ANESTHESIA: MAC with local. HEMOSTASIS: Right ankle tourniquet at 250 mmHg. INDICATIONS: The patient is a 63-year-old male with chronic recurrent wound to the dorsolateral fifth digit at the PIPJ. He has been treating with ciprofloxacin and local wound care and surgical shoe. Due to the chronic nature and recurrence of this wound, he wished to proceed with above said procedure. Discussed the risks, benefits and complications to include delayed healing, nonhealing, need for further surgery, loss of toe, loss of foot, limb or life, need for further surgery, recurrence of wound, numbness, tingling, burning, chronic pain, DVT, pulmonary embolism. The patient understands and agrees with above said procedure. No guarantees made. DESCRIPTION OF PROCEDURE: The patient was transported to the operating room via a cart and placed on the operating room table in supine position. Final verification of the surgery, the patient and limb was performed. He was given IV levofloxacin and a timeout was taken to assure the person, site of surgery, and surgery to be performed. IV sedation was administered and a fifth ray block was administered to the right foot consisting of a 1:1 mixture of 1% lidocaine plain and 0.5% Marcaine plain. The right foot was then prepped and draped in the usual aseptic manner. Esmarch bandage was used to exsanguinate the right foot and the right ankle tourniquet was placed up to 250 mmHg. Attention was directed to the right fifth digit dorsolateral aspect where two converging semielliptical incisions were made to excise the ulcer to the fifth digit in toto. It was noted that the joint capsule was fibrotic and thickened at this spot and the tissue was also debrided out. The proximal phalanx head was then identified of the fifth digit and noted to be hypertrophied to that lateral aspect of the head. A sagittal saw was used to resect both the head of the proximal phalanx and the lateral base of the middle phalanx. Wound culture was taken as well as the bone was sent for both pathology as well as to microbiology for aerobic, anaerobic wound cultures. The wound was then copiously irrigated with sterile saline. The tendon was reapproximated with 3-0 Vicryl and the skin was reapproximated with 4-0 nylon. The wound was dressed with Betadine ointment, Adaptic gauze, 4 x 4s, Kerlix bandage and an Raymond bandage. The tourniquet was deflated and good perfusion was noted to all digits of the right foot. The patient was transferred to the PACU with vital signs stable and vascular status intact to the right foot. ALFRED RAMOS DPM DR: Taiwo JOB#: [id number] / [id number]
--- NOTE | 2018-10-09 11:08 | PATHOLOGY ---
[facility] Accession Number: [id number] . 01 Material submitted: . toe - RIGHT 5TH PROXIMAL PHALANX. Modifiers: right, fifth, proximal . 01 Clinician provided ICD-10: n . 01 Clinical history: . Den[place]. . 02 Diagnosis: Bone, cartilage and surrounding soft tissue "right fifth proximal phalanx": - Focal necrosis with granulation tissue of soft tissue. - Fragments of bone and cartilage also present. (SHA:[facility]; 10/09/2018) QMS/10/09/2018 . 02 Electronically signed: . Tee Randolph MD, Pathologist NPI- [id number] . 01 Gross description: . Received in formalin labeled "Gustavo Meza, right fifth proximal phalanx" is a 1.8 x 1.3 x 0.4 cm aggregate of egan-white bony fragments. The specimen is submitted entirely in cassette A1 following decalcification. ([facility] [place]; 10/05/2018) SYC/SYC . 02 Pathologist provided ICD-10: M20.41 . 02 CPT . 169639, 244340 Specimen Comment: A courtesy copy of this report has been sent to Specimen Comment: [phone], . Specimen Comment: Report sent to / DR ARNOLD Performed at: 01 [facility] [address] [facility] [address], [place] [id number] MD Gera Ayala MD Phone: [phone] Performed at: 02 [facility] [address] [place], [place] [id number] MD Weston Olmos MD Phone: [phone]
== END 2018-10-05 14:37 | disposition home or self-care (01) ==
LOC: SURG 09:39
PROVIDERS: ATTEND Podiatrist Foot & Ankle Surgery
DX: M20.41 Other hammer toe(s) (acquired), right foot (principal); I48.91 Unspecified atrial fibrillation; Z79.899 Other long term (current) drug therapy; Z86.73 Personal history of transient ischemic attack (TIA), and cerebral infarction without residual deficits; Z98.890 Other specified postprocedural states; Z88.1 Allergy status to other antibiotic agents; Z88.8 Allergy status to other drugs, medicaments and biological substances
CPT/HCPCS: 28285; 36415; 73630; 80053; 85025; 85651; 86140; 87071; 87075; 87102; 87116; A7015; J1956; J2001; J2704; J3490; 87186; 88304; 88311; J1100

== ENCOUNTER → 2019-12-17 | Outpatient (CLI) | payer MEDICARE ==
[~2019-12-17] MED LIST changes: -BUPIVACAINE MPF 0.5% 30 ML VIAL. ONE; +CALC-313 PO; -DEXAMETHASONE SOD PHOS 4 MG/ML VIAL ONE; +HYDR25CA75 PO; -HYDROmorphone 2 MG/ML VIAL IV PRN; -IV RINGERS,LACTATED 1000ML 1,000 ML IV SCH; +LEVO500T8 PO; +LEVO750T5 PO; -LIDOCAINE 1% 20 ML VIAL. ONE; -LIDOCAINE 1% PF 2 ML VIAL. ID PRN; +MAGN200T PO; -MELA3TAB2 PO; +MELA3TAB4 PO; +MESA400C2 PO; -MORPHINE SULFATE 2 MG/ML VIAL. IV PRN; +MULT1CAP12 PO; -ONDANSETRON PF 4 MG/2 ML VIAL. IV PRN; -POVIDONE-IODINE 10% TOPICAL OINTMENT 28GM TUBE. TP ONE; -PROCHLORPERAZINE 10 MG/2 ML VIAL. IV PRN; +SULF1TAB24 PO; -fentaNYL PF VIAL 100 MCG/2 ML VIAL IV PRN
== END | disposition home or self-care (01) ==
LOC: LAB 14:18
PROVIDERS: ATTEND Podiatrist Foot & Ankle Surgery
DX: Z01.818 Encounter for other preprocedural examination (principal); Z11.59 Encounter for screening for other viral diseases
CPT/HCPCS: U0003-CS

== ENCOUNTER 2019-12-20 09:54 | Day surgery (SDC) | payer MEDICARE ==
[~2019-12-20 09:54] MED LIST changes: +HYDROmorphone 2 MG/ML VIAL IV PRN; +IV RINGERS,LACTATED 1000ML 1,000 ML IV SCH; +LIDOCAINE 1% PF 2 ML VIAL. ID PRN; +MORPHINE SULFATE 2 MG/ML VIAL. IV PRN; +PROCHLORPERAZINE 10 MG/2 ML VIAL. IV PRN; +fentaNYL PF VIAL 100 MCG/2 ML VIAL IV PRN
[2019-12-20] MEDS ORDERED: LIDOCAINE 2% PF 5 ML VIAL. ONE (10:07)
[2019-12-20] MEDS ORDERED: PROPOFOL 10 MG/ML (20ML) VIAL. IV ONE (10:07)
[2019-12-20] MEDS ORDERED: MIDAZOLAM HCL/PF 2 MG/2 ML VIAL. ONE (10:09)
[2019-12-20] MEDS ORDERED: DEXAMETHASONE SOD PHOS 4 MG/ML VIAL ONE (10:37)
[2019-12-20] MEDS ORDERED: LIDOCAINE 1% Multi-Dose 20 ML VIAL. ONE (10:37)
[2019-12-20] MEDS ORDERED: BUPIVACAINE MPF 0.5% 30 ML VIAL. ONE (10:37)
[2019-12-20] MEDS ORDERED: POVIDONE-IODINE 10% TOPICAL OINTMENT 28GM TUBE. TP ONE (10:37)
[2019-12-20 11:02] LABS: BASO # 0.1 x10^3/uL (0.0-0.2); BASO % 1 % (0-3); EOS # 0.2 x10^3/uL (0.0-0.7); EOS % 2 % (0-3); HEMOGLOBIN 14.4 g/dL (13.0-17.5); LYMPH % 23 % (24-48); MEAN CORPUSCULAR HEMOGLOBIN 30 pg (25-35); MEAN CORPUSCULAR HGB CONC 33 g/dL (31-37); MEAN CORPUSCULAR VOLUME 90 fL (79-100); MONO # 0.9 x10^3/uL (0.0-1.1); MONO % 11 % (0-9); NEUT # 5.4 x10^3/uL (1.8-7.7); NEUT % 63 % (31-73); PLATELET COUNT 217 x10^3/uL (140-400); RED BLOOD COUNT 4.76 x10^6/uL (4.30-5.70); RED CELL DISTRIBUTION WIDTH 13.8 % (11.5-14.5); WHITE BLOOD COUNT 8.5 x10^3/uL (4.0-11.0)
[2019-12-20 11:14] LABS: ANION GAP 9 (6-14); BLOOD UREA NITROGEN 18 mg/dL (8-26); BUN/CREATININE RATIO 16 (6-20); CALCIUM 8.5 mg/dL (8.5-10.1); CARBON DIOXIDE 27 mmol/L (21-32); CHLORIDE 102 mmol/L (98-107); CREATININE 1.1 mg/dL (0.7-1.3); GLUCOSE 87 mg/dL (70-99); POTASSIUM 3.9 mmol/L (3.5-5.1); SODIUM 138 mmol/L (136-145)
[2019-12-20 11:20] LABS: ALBUMIN 3.5 g/dL (3.4-5.0); ALBUMIN/GLOBULIN RATIO 0.9 (1.0-1.7); ALK PHOS 71 U/L (46-116); ALT (SGPT) 34 U/L (16-63); AST (SGOT) 20 U/L (15-37); TOTAL BILIRUBIN 0.5 mg/dL (0.2-1.0); TOTAL PROTEIN 7.6 g/dL (6.4-8.2)
[2019-12-20 11:21] LABS: C-REACTIVE PROTEIN < 0.5 mg/L (0-3.3)
[2019-12-20] MEDS ORDERED: ONDANSETRON PF 4 MG/2 ML VIAL. ONE (12:26)
--- NOTE | 2019-12-20 13:08 | PDOC4 ---
Operative Note Operative Note Surgeon: Rachel Pre operative diagnosis: Osteomyelitis 2nd metatarsal, chronic DM foot ulceration left foot post op dx: same Procedure: Resection of partial 2nd metatarsal left foot, excision of wound with closure plantar 2nd metatarsal head left foot Anesthesia: LMA with local Hemostasis: left ankle tourniquet at 250mmHg EBL 1mL Materials: no drains Pathology: 2nd metatarsal, 2nd metatarsal proximal clearance fragment Intraoperative findings: note bone of 2nd metatarsal firm with yellow discoloration to plantar 2nd metatarsal head. Full thickness ulceration sub 2nd metatarsal with serous abscess expressed Patient tolerated both anesthesia and procedure well. transferred to PACU with VSS and VSI to left foot VALERIA NIÑO DPM Dec 20, 2019 13:07
--- NOTE | 2019-12-20 13:38 | OP ---
DATE OF SURGERY: 12/20/2019 PREOPERATIVE DIAGNOSES: Osteomyelitis, second metatarsal as well as chronic diabetic foot ulceration to the plantar left foot. POSTOPERATIVE DIAGNOSES: Osteomyelitis, second metatarsal as well as chronic diabetic foot ulceration to the plantar left foot. PROCEDURE: Resection of partial second metatarsal, left foot as well as excision of wound with closure plantar second metatarsal head, left foot. SURGEON: Alfred Ramos DPM ANESTHESIA: LMA with local. HEMOSTASIS: Left ankle tourniquet at 250 mmHg. INDICATIONS: The patient is a 64-year-old male with a chronic recurrent ulceration to the plantar second metatarsal. He has been resistant to more aggressive wound care therapy with skin graft as well as total contact casting and a second metatarsal head resection with closure of wound in the past. He continued to have drainage and suspected abscess. MRI showed osteomyelitis of the distal 4 cm of the second metatarsal. Discussed with the patient on 12/14/2019 his results and treatment options, recommended a partial second ray amputation. The patient was at first resistant; however, due to his continued pain and frustration with the wound, he agreed. Discussed with the patient the possible risks, benefits, and complications to include delayed or nonhealing, need for further surgery, infection, transfer lesions, loss of toe, foot, limb or life, DVT, pulmonary embolism, chronic pain. All questions were answered. The patient signed consent freely and put in chart. He is taking levofloxacin p.o. and Bactrim p.o. currently. DESCRIPTION OF PROCEDURE: The patient was transported to the operating room via a cart and placed on the operating table in supine position. Final verification of the surgery, the patient and limb was performed. The patient was given 500 IV levofloxacin. The LMA was administered per anesthesia, an ankle block with a local second ray block was given to the left foot with a 1:1 mixture of 0.5% Marcaine plain and 1% lidocaine plain. A well-padded tourniquet was placed over the left ankle. The left foot was then prepped and draped in the usual aseptic manner. Esmarch bandage was used to exsanguinate the left foot. The left ankle tourniquet was inflated to 250 mmHg. Attention was first directed to the plantar second metatarsal. Noted full thickness ulceration. Created two Elliptical incisions to cut out the ulceration. Noted full thickness atrophied scar tissue and deep abscess. Serous drainage was expressed. Next, the attention was directed to the dorsal second ray where a 6 cm incision was made over the second metatarsal. This was deepened to the level of the second metatarsal and soft tissue was reflected from the bone. This was then resected 4.5 cm of bone with a sagittal saw. It was noted that the bone was firm. There was some yellow discoloration at the head of the metatarsal and clearance fragment was then taken at the proximal shaft and both specimens were sent for pathology for further evaluation. Wound culture was taken, aerobic and anaerobic, AFB and fungal. The 3 liter bag pulse lavage was then used to copiously irrigate both wounds. Next, the plantar wound was reapproximated with 3-0 nylon and the top dorsal incision was reapproximated with 4-0 nylon. Please note prior to closure, small vessels were cauterized to the dorsal and plantar wound. Applied Betadine-soaked Adaptic gauze, 4 x 4, Kerlix bandage, Raymond bandage. Tourniquet was deflated and good perfusion was noted to all digits of the left foot. The patient tolerated both anesthesia and procedure well. Postop instructions are in the chart. ALFRED RAMOS DPM DR: LUIS/kobi JOB#: [id number] / [id number]
[2019-12-20 13:50] VITALS: BP 124/58
--- NOTE | 2019-12-20 18:47 | RAD ---
EXAM: AP, oblique and lateral views of the right foot DATE: 12/20/2019 1:05 PM INDICATION: Reason: status post 2nd met resection left / Spl. Instructions: in PACU / History: COMPARISON: 10/05/2018 FINDINGS: Interval amputation of the mid second metatarsal shaft with associated postsurgical changes including foci of gas. Amputation through the proximal phalanx right great toe and PIP joint of the third toe. Moderate associated soft tissue swelling is seen. Moderate Kager fat pad edema or low-lying soleus. IMPRESSION: Postoperative changes of amputation through the mid second metatarsal shaft. Expected postoperative soft tissue changes with foci of gas. No acute fracture or dislocation. Electronically signed by: Zechariah Townsend MD (12/20/2019 6:45 PM) TANYA
--- NOTE | 2019-12-25 15:07 | PATHOLOGY ---
[facility] Accession Number: [id number] . 01 Material submitted: . PART A: toe - SECOND METATARSAL. Modifiers: second PART B: toe - SECOND METATARSAL CLEARANCE FRAGMENT. Modifiers: second . 01 Clinical history: . abcess . 02 Diagnosis: A. Segment of bone with attached soft tissue and synovial tissue, left second metatarsal partial amputation: - Focal mild acute and chronic osteomyelitis. - Mild acute and chronic synovitis. . B. Segment of bone, second metatarsal clearance fragment: - Negative for inflammation. . (JPM:louisa; 12/25/2019) MBR 12/25/2019 1104 Local . 02 Electronically signed: . Weston Olmos MD, Pathologist NPI- [id number] . 01 Gross description: . A. The specimen is received in formalin, labeled "Susana, Gustavo, second metatarsal" and consists of a segment of bone measuring 4.6 cm in length and up to 2.0 cm in diameter. One margin is flat and smooth consistent with a transection margin with the opposite is a cartilaginous convex metatarsal head. Sectioning reveals pink-egan to yellow bone cut surfaces. A full-thickness customer relations representative sections submitted in A1-A2 following decalcification. . B. The specimen is received in formalin, labeled "Susana Chen, second metatarsal clearence fragment" and consists of a segment of egan bone measuring 1.1 x 1.0 x 0.3 cm which is entirely submitted in B1 following decalcification. ([facility]; 12/21/2019) SYU/SYU 12/21/2019 1035 Local . 02 Pathologist provided ICD-10: M86.172, M86.672, M65.872 . 02 CPT . 937861, 717908, 841272, 698741 Specimen Comment: A courtesy copy of this report has been sent to [phone] Specimen Comment: [id number] Specimen Comment: Report sent to / Performed at: 01 [facility] [address] [place] [address], [place] [id number] MD Gera Ayala MD Phone: [phone] Performed at: [address] [facility] [address] [place], [place] [id number] MD Weston Olmos MD Phone: [phone]
== END 2019-12-20 14:50 | disposition home or self-care (01) ==
LOC: SURG 09:54
PROVIDERS: ATTEND Podiatrist Foot & Ankle Surgery
DX: E11.621 Type 2 diabetes mellitus with foot ulcer (principal); L97.528 Non-pressure chronic ulcer of other part of left foot with other specified severity; M86.172 Other acute osteomyelitis, left ankle and foot; M65.872 Other synovitis and tenosynovitis, left ankle and foot; M71.072 Abscess of bursa, left ankle and foot; I48.91 Unspecified atrial fibrillation; E66.9 Obesity, unspecified; Z79.2 Long term (current) use of antibiotics; Z79.899 Other long term (current) drug therapy; Z79.82 Long term (current) use of aspirin; Z68.33 Body mass index [BMI] 33.0-33.9, adult; Z89.421 Acquired absence of other right toe(s)
CPT/HCPCS: 28122; 36415; 73630; 80053; 85025; 86140; 87071; 87075; 87102; 87116; 88304; 88305; 88311; A7015; J1956; J2405; J2704; J3010; J3490; J1100; J2250

== ENCOUNTER → 2020-08-12 | Outpatient (CLI) | payer MEDICARE ==
[~2020-08-12] MED LIST changes: -HYDROmorphone 2 MG/ML VIAL IV PRN; -IV RINGERS,LACTATED 1000ML 1,000 ML IV SCH; -LIDOCAINE 1% PF 2 ML VIAL. ID PRN; -MORPHINE SULFATE 2 MG/ML VIAL. IV PRN; -PROCHLORPERAZINE 10 MG/2 ML VIAL. IV PRN; -fentaNYL PF VIAL 100 MCG/2 ML VIAL IV PRN
--- NOTE | 2020-08-12 17:50 | RAD ---
BILATERAL LOWER EXTREMITY DUPLEX ARTERY ULTRASOUND Indication: Edema, unspecified. Comparison: None. Procedure: Real-time grayscale, color flow Doppler, and Doppler spectral waveform analysis of the art erial system of the lower extremity is performed. Findings: Normal triphasic waveforms are present in the right and left common femoral artery, superficial femor al artery, popliteal artery, anterior tibial artery, posterior tibial artery and dorsalis pedis arter y. The left profunda artery waveform is biphasic. There is mildly elevated peak systolic velocity of the right dorsalis pedis artery, 176 cm/s. The bilateral peroneal arteries are not visualized and may be occluded or small caliber. IMPRESSION: 1. The bilateral peroneal arteries are not visualized and may be occluded or small caliber. 2. There is no hemodynamically significant stenosis. Electronically signed by: Emerson Menendez MD (08/12/2020 5:48 PM) [id number]
== END ==
LOC: US 13:10
PROVIDERS: ATTEND Internal Medicine Cardiovascular Disease
DX: R60.9 Edema, unspecified (principal)
CPT/HCPCS: 93925

== ENCOUNTER → 2020-08-13 | Outpatient (CLI) | payer MEDICARE ==
--- NOTE | 2020-08-13 15:55 | RAD ---
US VENOUS REFLUX Clinical Indication: Reason: EDEMA / Spl. Instructions: / History: Comparison: None. Procedure: Color flow Doppler, spectral Doppler analysis, and 2D images are obtained with and without patient performing Valsalva maneuver of the superficial veins of both lower extremities. Findings: The right greater saphenous vein at the saphenofemoral junction has diameter of 7 mm, reflux measures 2.3 seconds. No other right greater saphenous vein reflux is identified. The right small saphenous vein proximally measures 7 mm and reflux measures 0.7 seconds. The mid vein measures 5 mm and reflux measures 0.65 seconds. The left greater saphenous vein at the saphenofemoral junction has diameter of 9 mm, reflux measures 2.3 seconds. Proximal greater saphenous vein has diameters 6 mm, reflux is 2.7 seconds. Mid vein diameter 5 mm, re flux 2.9 seconds. Distal greater saphenous vein 3.4 mm diameter, reflux 2.2 seconds. The left lesser saphenous vein proximally has diameter of 8 mm, reflux is 2.3 seconds, mid 8.4 mm diameter, 2.3 secon ds of reflux. Distal diameter is 6.5 mm, reflux 2.8 seconds. IMPRESSION: 1. There is reflux throughout the left greater saphenous vein. 2. Reflux of the right greater saphenous vein is only seen at the saphenofemoral junction. 3. There is mild reflux of the right small saphenous vein. 4. There is reflux throughout the left lesser saphenous vein. Electronically signed by: Emerson Menendez MD (08/13/2020 3:53 PM) [id number]
== END ==
LOC: US 08:46
PROVIDERS: ATTEND Internal Medicine Cardiovascular Disease
DX: R60.0 Localized edema (principal)
CPT/HCPCS: 93970

== ENCOUNTER 2020-09-11 22:38 | Emergency (ER) | payer MEDICARE ==
[~2020-09-11] VITALS: Ht 195.6 cm; Wt 127.0 kg
[2020-09-11 22:45] VITALS: BP 150/74
--- NOTE | 2020-09-11 22:51 | PHYS DOC ---
Past Medical History Past Medical History: A-Fib, Anxiety, Depression, Hypertension Additional Past Medical Histor: ulcerative colitis, Prostate, C-Diff. Past Surgical History: Other Additional Past Surgical Histo: Toe, o, right testicle removal, hernia w/mesh Smoking Status: Never Smoker Alcohol Use: Occasionally Drug Use: None General Adult EDM: Chief Complaint: NOSEBLEED HPI: HPI: Patient is a 65-year-old male who presents via EMS for nosebleed. Onset was approximately 1 hour ago, patient reports washing face as part of nightly routine when he accidentally scraped the inside portion of his nose which caused him to develop a nosebleed. Patient reports holding direct pressure on the nose but this did not significantly improve his condition which concerned him after 10 minutes prompting him to call EMS. On arrival, EMS placed gauze in left nare and applied pressure which completely stopped patient's nosebleed and less than 10 minutes. He was subsequently transferred to our facility for arrival. On arrival, patient hemodynamically stable, has no complaints, reports bleeding has stopped. Does admit he has a history of atrial fibrillation and is on 81 mg aspirin daily, has no significant history of epistaxis, no prior nasal surgery or other invasive/concerning intervention Review of Systems: Review of Systems: Fourteen body systems of review of systems have been reviewed. See HPI for pertinent positives and negative responses, other estes all other systems are negative, non-pertinent or non-contributory Heart Score: C/O Chest Pain: No HEART Score for Chest Pain: HEART Score for Chest Pain Response (Comments) Value History Slighlty/Non-Suspicious 0 Age > 65 2 Risk Factors >3 Risk Factors or Hx CAD 2 Total 4 Risk Factors: Risk Factors: DM, Current or recent (<one month) smoker, HTN, HLP, family history of CAD, obesity. Risk Scores: Score 0 - 3: 2.5% MACE over next 6 weeks - Discharge Home Score 4 - 6: 20.3% MACE over next 6 weeks - Admit for Clinical Observation Score 7 - 10: 72.7% MACE over next 6 weeks - Early Invasive Strategies Allergies: Allergies: Allergies Coded Allergies Type Severity Reaction Last Updated Verified No Known Drug Allergies 12/20/19 No Physical Exam: PE: Constitutional: Well developed, well nourished, no acute distress, non-toxic appearance. HENT: Normocephalic, atraumatic, bilateral external ears normal, oropharynx moist, no oral exudates, external nose unremarkable, inside right nare patent without any obvious abnormalities, left nare initially presenting with rolled up gauze and stuck position in left nare. This was removed with giant blood clot pulled out. No residual active bleeding present, naris thoroughly evaluated, no obvious anterior and/or posterior bleed active, no obvious locations necessitating cauterization at present Eyes: PERRLA, EOMI, conjunctiva normal, no discharge. Neck: Normal range of motion, no tenderness, supple, no stridor. Cardiovascular: Heart rate regular, sinus rhythm, no murmurs rubs or gallops Lungs & Thorax: Bilateral breath sounds clear to auscultation Abdomen: Bowel sounds normal, soft, no tenderness, no masses, no pulsatile masses. Nonsurgical abdomen, no peritoneal signs Skin: Warm, dry, no erythema, no rash. Back: No tenderness, no CVA tenderness. Extremities: No tenderness, no cyanosis, no clubbing, ROM intact, no edema. Neurologic: Alert and oriented X 3, grossly normal motor & sensory function, no focal deficits noted. Psychologic: Affect normal, judgement normal, mood normal. Current Patient Data: Vital Signs: Vital Signs Date Time Temp Pulse Resp B/P (MAP) Pulse Ox O2 Delivery O2 Flow Rate FiO2 09/11/20 22:45 98.0 76 12 150/74 (99) 98 Room Air 98.0 Vital Signs Date Time Temp Pulse Resp B/P (MAP) Pulse Ox O2 Delivery O2 Flow Rate FiO2 09/11/20 22:45 98.0 76 12 150/74 (99) 98 Room Air 98.0 EKG: EKG: [] Radiology/Procedures: Radiology/Procedures: [] Course & Med Decision Making: Course & Med Decision Making Vital signs stable, HPI concerning for epistaxis and patient with atrial fibrillation on 81 mg aspirin daily. Physical exam nonconcerning Patient reports losing less than 4 ounces of blood total. Bleeding stopped in less than 20 minutes. He has no residual symptoms such as headache, blurred vision, dizziness, fatigue etc. Patient observed while in ER setting for greater than 1 hour after removal and thorough evaluation of left nare. Remained patent without any obvious signs of active and/or recurrent bleeding. I discussed role of diagnostic work-up in ER setting such as laboratory analysis among other things, joint decision to defer given patient is hemodynamically stable, asymptomatic and no longer bleeding. As such, close PCP follow-up was advised. I recommended patient continue taking 81 mg aspirin daily. I recommended against patient doing anything that would provoke/potentially traumatize his nare until close outpatient follow-up. I discussed there is no emergent need for cauterization at present but he might require ENT follow-up for further evaluation and intervention if this recurs. He has never had issue of epistaxis this in the past but I did disclose this might be an acute presentation of more concerning pathology Strict return precautions were discussed with good understanding by patient, all questions and concerns addressed prior to ER departure Barbara Disclaimer: Dragsilvia Disclaimer: This electronic medical record was generated, in whole or in part, using a voice recognition dictation system. Departure Departure Impression: Primary Impression: Epistaxis Disposition: HOME / SELF CARE / HOMELESS Condition: GOOD Referrals: ROXANNA ARNOLD MD (PCP) Patient Instructions: Nosebleed Additional Instructions: You were seen for a nosebleed. You should blow your nose, subsequently packed your nares with provided gauze, and hold pressure on the lower part of your nose if you develop a nose bleed again. Continue this for 20 minutes or until the bleeding stops. Do not remove the pressure to look before this time as your nose will start bleeding again. Your bleeding is most likely due to irritation due to irritation and/or trauma. You need to avoid putting anything in your nose in the future (e.g. fingers, kleenex, qtips, etc). As disclose, it would be beneficial to contact your primary care physician first thing in the morning to review your ER visit today, there might be indication for outpatient ENT consultation for evaluation and follow-up. If any concerning signs or symptoms present prior to outpatient follow-up please do not hesitate to come back for repeat evaluation. It was a pleasure to take care of you and I wish you the best going forward WENDY PATEL DO September 11, 2020 22:51
== END 2020-09-11 23:48 | disposition home or self-care (01) ==
LOC: ER 22:38
DX: R04.0 Epistaxis (principal); I48.91 Unspecified atrial fibrillation; F41.9 Anxiety disorder, unspecified; F32.9 Major depressive disorder, single episode, unspecified; I10 Essential (primary) hypertension
CPT/HCPCS: 99283

== ENCOUNTER → 2020-10-15 | Outpatient (CLI) | payer MEDICARE ==
[~2020-10-15] MED LIST changes: -LACT1CAP29 PO; +LACT1CAP37 PO
--- NOTE | 2020-10-15 12:10 | RAD ---
INDICATION: Reason: Post Op Left vein Ablation of LT GSv and SSV; Venous Insufficiency / Spl. Instruc tions: / History: COMPARISON: August 2020 TECHNIQUE: Grayscale, color and doppler ultrasound images were obtained of the left lower extremity v enous vasculature. LEFT: No thrombus identified in the common femoral vein, femoral vein, popliteal vein or visualized calf ve ins. Thrombus is identified within the greater saphenous and lesser saphenous vein as expected post a blation IMPRESSION: * No thrombus identified in deep venous system of the left lower extremity. Thrombus within the gre ater saphenous and lesser saphenous vein consistent with post ablation changes. Electronically signed by: Pravin Meléndez MD (10/15/2020 12:08 PM) [id number]
== END ==
LOC: US 11:01
PROVIDERS: ATTEND Internal Medicine Cardiovascular Disease
DX: I82.812 Embolism and thrombosis of superficial veins of left lower extremity (principal)
CPT/HCPCS: 93971

== ENCOUNTER 2021-06-02 10:01 | Day surgery (SDC) | payer MEDICARE ==
[~2021-06-02] VITALS: Ht 195.6 cm; Wt 121.0 kg
[~2021-06-02 10:01] MED LIST changes: +HYDROmorphone 2 MG/ML INJ. IVP PRN; +IV RINGERS,LACTATED 1000ML 1,000 ML IV SCH; -LEVO500T8 PO; +LEVO500T9 PO; +MORPHINE SULFATE 2 MG/ML INJ. IVP PRN; +PROCHLORPERAZINE 10 MG/2 ML VIAL. IVP PRN; +VANCOMYCIN 1 GM in IV NORMAL SALINE 250ML 250 ML IV ONE; +fentaNYL PF VIAL 100 MCG/2 ML VIAL IVP PRN
[2021-06-02] MEDS ORDERED: FLEC100T PO (10:33)
[2021-06-02 10:51] LABS: BASO # 0.1 x10^3/uL (0.0-0.2); BASO % 1 % (0-3); EOS # 0.3 x10^3/uL (0.0-0.7); EOS % 4 % (0-3); HEMATOCRIT 43.5 % (39.0-53.0); HEMOGLOBIN 14.7 g/dL (13.0-17.5); LYMPH # 2.2 x10^3/uL (1.0-4.8); LYMPH % 28 % (24-48); MEAN CORPUSCULAR HEMOGLOBIN 31 pg (25-35); MEAN CORPUSCULAR HGB CONC 34 g/dL (31-37); MEAN CORPUSCULAR VOLUME 90 fL (79-100); MONO # 0.9 x10^3/uL (0.0-1.1); MONO % 11 % (0-9); NEUT # 4.3 x10^3/uL (1.8-7.7); NEUT % 56 % (31-73); PLATELET COUNT 190 x10^3/uL (140-400); RED BLOOD COUNT 4.81 x10^6/uL (4.30-5.70); RED CELL DISTRIBUTION WIDTH 13.4 % (11.5-14.5); WHITE BLOOD COUNT 7.6 x10^3/uL (4.0-11.0)
[2021-06-02 11:03] LABS: CALCIUM 8.7 mg/dL (8.5-10.1); CREATININE 0.9 mg/dL (0.7-1.3); GFR 84.2; POTASSIUM 3.8 mmol/L (3.5-5.1)
[2021-06-02 11:09] LABS: ALBUMIN 3.7 g/dL (3.4-5.0); ALBUMIN/GLOBULIN RATIO 0.8 (1.0-1.7); TOTAL BILIRUBIN 0.5 mg/dL (0.2-1.0); TOTAL PROTEIN 8.1 g/dL (6.4-8.2)
[2021-06-02] MEDS ORDERED: DEXAMETHASONE SOD PHOS 4 MG/ML VIAL ONE ×2 (12:04→12:09)
[2021-06-02] MEDS ORDERED: LIDOCAINE 2% PF 5 ML VIAL. ONE (12:04)
[2021-06-02] MEDS ORDERED: ONDANSETRON PF 4 MG/2 ML VIAL. ONE (12:04)
[2021-06-02] MEDS ORDERED: fentaNYL PF VIAL 100 MCG/2 ML VIAL ONE (12:04)
[2021-06-02] MEDS ORDERED: PROPOFOL 10 MG/ML (20ML) VIAL. IV ONE (12:04)
[2021-06-02] MEDS ORDERED: SEVOFLURANE 31 TO 60 MINUTES. IH ONE (12:04)
[2021-06-02] MEDS ORDERED: BUPIVACAINE MPF 0.5% 30 ML VIAL. ONE (12:09)
[2021-06-02] MEDS ORDERED: LIDOCAINE 1% PF 30 ML VIAL. ONE (12:09)
--- NOTE | 2021-06-02 12:43 | PDOC1 ---
History and Physical Date of Service: DOS: DATE: 06/02/21 TIME: 12:38 Chief Complaint: Chief Complain: Ulceration of the third right toe History of Present Illness: HPI: 65-year-old male who comes in for ulceration of his right third toe. Patient follows with Dr. Diamond and is planned for an amputation of his third toe due to infection. Past Medical/Surgical History: PMH/PSH: Past medical history of hypertension, BPH, varicose veins, ulcerative colitis, history of C. difficile in 2018 Past surgical history of amputation of his left toes, hernia repair Allergies: Allergies: Coded Allergies: No Known Drug Allergies (Unverified , 06/02/21) Family History: Family History: Reviewed with no relevant findings in the chart Social History: Social History: Occasional alcohol Current Medications: Current Medications Current Medications Fentanyl Citrate (Fentanyl 2ml Vial) 25 mcg PRN Q5MIN PRN IVP MILD PAIN 1-3; Start 06/02/21 at 06:00; Stop 06/03/21 at 05:59 Fentanyl Citrate (Fentanyl 2ml Vial) 50 mcg PRN Q5MIN PRN IVP MODERATE PAIN 4- 6; Start 06/02/21 at 06:00; Stop 06/03/21 at 05:59 Morphine Sulfate (Morphine Sulfate) 1 mg PRN Q10MIN PRN IVP SEVERE PAIN 7-10; Start 06/02/21 at 06:00; Stop 06/03/21 at 05:59 Ringer's Solution 1,000 ml @ 30 mls/hr Q24H IV Last administered on 06/02/21at 10:49; Start 06/02/21 at 06:00; Stop 06/02/21 at 17:59 Hydromorphone HCl (Dilaudid) 0.5 mg PRN Q10MIN PRN IVP SEVERE PAIN 7-10, 2nd CHOICE; Start 06/02/21 at 06:00; Stop 06/03/21 at 05:59 Prochlorperazine Edisylate (Compazine) 5 mg PACU PRN PRN IVP NAUSEA, MRX1; Start 06/02/21 at 06:00; Stop 06/03/21 at 05:59 Vancomycin HCl 1 gm/Sodium Chloride 250 ml @ 250 mls/hr PREOP PRN ONCE IV ; Start 06/02/21 at 06:00; Stop 06/02/21 at 06:59; Status DC Active Scripts Active Diltiazem 24HR Cd (Diltiazem Hcl) 180 Mg Cap.er.24h 180 Mg PO DAILY Reported Flecainide Acetate 100 Mg Tablet 50 Mg PO BID Augmentin 875-125 Tablet (Amoxicillin/Potassium Clav) 1 Each Tablet 1 Tab PO BID 10 Days Levofloxacin 750 Mg Tablet 1 Tab PO DAILY Delzicol (Mesalamine) 400 Mg Cap.drtab. 400 Mg PO DAILY Flomax (Tamsulosin Hcl) 0.4 Mg Cap.er.24h 0.4 Mg PO BID Hydroxyzine Pamoate 25 Mg Capsule 1 Cap PO PRN PRN Calcium Citrate With D Tablet (Calcium Citrate/Vitamin D3) 1 Each Tablet 1 Each PO DAILY Kelp (Iodine) 150 Mcg Tablet 150 Mcg PO DAILY05 Urinozinc Prostate Formula Cap (Multivits-Min/Hrb Cb121) 1 Each Capsule 1 Each PO DAILY Magnesium 200 Mg Tablet 100 Mg PO DAILY [prostate revive] PO DAILY Garlic 1,500 Mg Capsule 1,000 Mg PO DAILY Any Root 550 Mg Capsule 550 Mg PO BID Papaya (Papain) 100 Mg Tablet 0 PO DAILY Krill Oil 500 Mg Capsule 1,000 Mg PO DAILY KRILL PLUS COD LIVER OIL Melatonin 3 Mg Tablet 10 Mg PO HS Aspirin 81 Mg Tab.chew 81 Mg PO DAILY ROS: Review of Systems Review of System REVIEW OF SYSTEMS: GENERAL: Denies weakness SKIN: No bruising, hair changes or rashes. EYES: No blurred, double or loss of vision. NOSE AND THROAT: No history of nosebleeds, hoarseness or sore throat. HEART: No history of palpitations, chest pain or shortness of breath on exertion. LUNGS: Denies cough, hemoptysis, wheezing or shortness of breath. GASTROINTESTINAL: Denies changes in appetite, nausea, vomiting, diarrhea or constipation. GENITOURINARY: No history of frequency, urgency, hesitancy or nocturia. NEUROLOGIC: Denies history of numbness, tingling, or tremor. PSYCHIATRIC: No history of panic, anxiety or depression. ENDOCRINE: No history of heat or cold intolerance, polyuria or polydipsia. EXTREMITIES: Denies joint pain, pain on walking or stiffness. Physical Exam: Vital Signs: Vital Signs Date Time Temp Pulse Resp B/P (MAP) Pulse Ox O2 Delivery O2 Flow Rate FiO2 06/02/21 10:38 97.1 57 20 135/78 98 Room Air 97.1 Physcial Exam: General: Well developed, well nourished, no acute distress, well appearing HEENT: Pupils equally round and reactive to light, EOMI, no discharge, normal conjunctiva Neck: Supple, no nuchal rigidity, no JVD, trachea midline, no tenderness Cardiac: RRR, no murmurs, no gallops, no rubs Chest/Lungs: CTAB, no wheeze, no rhonchi, no crackles Abdomen: soft, non-distended, no guarding, no peritoneal signs, non-tender Back: No tenderness Extremities: no edema, pulses intact, non-tender,capillary refill <3 sec bilateral upper and lower extremities, right lower extremity in dressings Neuro: Alert and oriented x 4, no focal deficits, normal speech Labs: Labs: Laboratory Tests Test 06/02/21 10:43 White Blood Count 7.6 x10^3/uL (4.0-11.0) Red Blood Count 4.81 x10^6/uL (4.30-5.70) Hemoglobin 14.7 g/dL (13.0-17.5) Hematocrit 43.5 % (39.0-53.0) Mean Corpuscular Volume 90 fL (79-100) Mean Corpuscular Hemoglobin 31 pg (25-35) Mean Corpuscular Hemoglobin Concent 34 g/dL (31-37) Red Cell Distribution Width 13.4 % (11.5-14.5) Platelet Count 190 x10^3/uL (140-400) Neutrophils (%) (Auto) 56 % (31-73) Lymphocytes (%) (Auto) 28 % (24-48) Monocytes (%) (Auto) 11 % (0-9) Eosinophils (%) (Auto) 4 % (0-3) Basophils (%) (Auto) 1 % (0-3) Neutrophils # (Auto) 4.3 x10^3/uL (1.8-7.7) Lymphocytes # (Auto) 2.2 x10^3/uL (1.0-4.8) Monocytes # (Auto) 0.9 x10^3/uL (0.0-1.1) Eosinophils # (Auto) 0.3 x10^3/uL (0.0-0.7) Basophils # (Auto) 0.1 x10^3/uL (0.0-0.2) Sodium Level 140 mmol/L (136-145) Potassium Level 3.8 mmol/L (3.5-5.1) Chloride Level 107 mmol/L (98-107) Carbon Dioxide Level 26 mmol/L (21-32) Anion Gap 7 (6-14) Blood Urea Nitrogen 25 mg/dL (8-26) Creatinine 0.9 mg/dL (0.7-1.3) Estimated GFR (Cockcroft-Gault) 84.2 BUN/Creatinine Ratio 28 (6-20) Glucose Level 92 mg/dL (70-99) Calcium Level 8.7 mg/dL (8.5-10.1) Total Bilirubin 0.5 mg/dL (0.2-1.0) Aspartate Amino Transf (AST/SGOT) 24 U/L (15-37) Alanine Aminotransferase (ALT/SGPT) 43 U/L (16-63) Alkaline Phosphatase 72 U/L (46-116) Total Protein 8.1 g/dL (6.4-8.2) Albumin 3.7 g/dL (3.4-5.0) Albumin/Globulin Ratio 0.8 (1.0-1.7) Laboratory Tests Test 06/02/21 10:43 White Blood Count 7.6 x10^3/uL (4.0-11.0) Red Blood Count 4.81 x10^6/uL (4.30-5.70) Hemoglobin 14.7 g/dL (13.0-17.5) Hematocrit 43.5 % (39.0-53.0) Mean Corpuscular Volume 90 fL (79-100) Mean Corpuscular Hemoglobin 31 pg (25-35) Mean Corpuscular Hemoglobin Concent 34 g/dL (31-37) Red Cell Distribution Width 13.4 % (11.5-14.5) Platelet Count 190 x10^3/uL (140-400) Neutrophils (%) (Auto) 56 % (31-73) Lymphocytes (%) (Auto) 28 % (24-48) Monocytes (%) (Auto) 11 % (0-9) Eosinophils (%) (Auto) 4 % (0-3) Basophils (%) (Auto) 1 % (0-3) Neutrophils # (Auto) 4.3 x10^3/uL (1.8-7.7) Lymphocytes # (Auto) 2.2 x10^3/uL (1.0-4.8) Monocytes # (Auto) 0.9 x10^3/uL (0.0-1.1) Eosinophils # (Auto) 0.3 x10^3/uL (0.0-0.7) Basophils # (Auto) 0.1 x10^3/uL (0.0-0.2) Sodium Level 140 mmol/L (136-145) Potassium Level 3.8 mmol/L (3.5-5.1) Chloride Level 107 mmol/L (98-107) Carbon Dioxide Level 26 mmol/L (21-32) Anion Gap 7 (6-14) Blood Urea Nitrogen 25 mg/dL (8-26) Creatinine 0.9 mg/dL (0.7-1.3) Estimated GFR (Cockcroft-Gault) 84.2 BUN/Creatinine Ratio 28 (6-20) Glucose Level 92 mg/dL (70-99) Calcium Level 8.7 mg/dL (8.5-10.1) Total Bilirubin 0.5 mg/dL (0.2-1.0) Aspartate Amino Transf (AST/SGOT) 24 U/L (15-37) Alanine Aminotransferase (ALT/SGPT) 43 U/L (16-63) Alkaline Phosphatase 72 U/L (46-116) Total Protein 8.1 g/dL (6.4-8.2) Albumin 3.7 g/dL (3.4-5.0) Albumin/Globulin Ratio 0.8 (1.0-1.7) Images: Images No recent images to review Assessment/Plan Assessment/Plan 65-year-old male who presents for a phalangectomy, partial toe amputation of the right foot with Dr. Diamond Patient is low risk for nonvascular orthopedic extremity surgery Plan for discharge after procedure. Please call hospitalist service if plan to admit for any reason. Thank you Justifications for Admission Other Justification SOREN GALLEGOS MD Jun 02, 2021 12:42
[2021-06-02] MEDS ORDERED: LIDOCAINE 1% PF 30 ML VIAL. INJ ONE (12:54)
[2021-06-02] MEDS ORDERED: ePHEDrine PF IN SALINE 50 MG/10 ML SYRINGE. IV ONE (12:56)
[2021-06-02] MEDS ORDERED: BUPIVACAINE MPF 0.5% 30 ML VIAL. IJ ONE (13:20)
--- NOTE | 2021-06-02 13:26 | PDOC4 ---
OPERATIVE NOTE: Surgeon: Rachel Pre op diagnosis: osteomyelitis 3rd toe distal phalanx right post op diagnosis: same Procedure: phalangectomy distal phalanx 3rd toe right Anesthesia LMA with local Hemostasis: Right ankle tourniquet at 250mmHg EBL: 1mL Materials: 3-0 vicryl, 4-0 nylon Specimen: distal phalanx 3rd toe and cartilage middle phalanx as clearance fragment intra operative findings: Consistent with diagnosis. no proximal sinus tracts. head of middle phalanx white glistening Patient tolerated anesthesia and procedure well transferred to PACU with VSS and VSI to right foot VALERIA NIÑO DPM Jun 02, 2021 13:26
--- NOTE | 2021-06-02 13:57 | OP ---
DATE OF SURGERY: 06/02/2021 PREOPERATIVE DIAGNOSIS: Osteomyelitis, third toe, distal phalanx, right. POSTOPERATIVE DIAGNOSIS: Osteomyelitis, third toe, distal phalanx, right. PROCEDURE: Phalangectomy, distal phalanx, third toe, right. ANESTHESIA: LMA with local. HEMOSTASIS: Right ankle tourniquet at 250 mmHg. INDICATIONS: The patient is a 65-year-old male with severe peripheral neuropathy with history of multiple toe amputations, who is being treated for a chronic wound to the third toe, right foot for several weeks, months and recent MRI showed that there was suggestive osteomyelitis of the distal phalanx and recommended phalangectomy of the distal phalanx. Discussed with the patient risks, benefits and complications to include delayed or nonhealing, infection, need for further surgery, loss of toe, foot, limb or life, DVT, pulmonary embolism, chronic regional pain syndrome, lack of toe purchase, floppy toe, flail toe, transfer lesion. All questions were answered. The patient wished to proceed with the above said procedure. No guarantees were made. Consent signed freely and put in chart. DESCRIPTION OF PROCEDURE: The patient was transported to the operating room via a cart and placed on the operating room table in supine position. Following verification of the patient, surgery of limb was performed. The patient was given IV vancomycin preoperatively. A well-padded tourniquet was placed over the right ankle. LMA was administered per anesthesia and a third ray block was administered to the right foot consisting of a 1:1 mixture of 1% lidocaine plain and 0.5% Marcaine plain, 10 mL total. The right foot was then prepped and draped in the usual aseptic manner. The right foot was exsanguinated to gravity and the right ankle tourniquet was inflated to 250 mmHg. Attention was directed to the third digit where a fishmouth incision was made at the distal interphalangeal joint. The distal phalanx was then resected and noted to have white glistening cartilage to the middle phalanx, which was then resected with a bone cutter and sent to pathology for clearance fragment. Obtained aerobic and anaerobic wound culture and the wound was then copiously irrigated with sterile saline. Small vessels were cauterized. The skin incision was then reapproximated with 3-0 Vicryl and 4-0 nylon and the wound was dressed with Betadine-soaked Adaptic gauze, 4 x 4s, Kerlix bandage and then a soft roll with Raymond bandages away to the knee starting at the metatarsal heads. The tourniquet was deflated and good perfusion was noted to all digits of the right foot. Postop instructions are in the chart. LUIS/REGGIE DR: Taiwo TID: [id number]
--- NOTE | 2021-06-02 14:10 | RAD ---
EXAM: Right foot, 3 views. HISTORY: Postoperative evaluation. COMPARISON: 12/20/2019 FINDINGS: 3 views of the right foot are obtained. There has been interval amputation of the third toe at the level of the distal aspect of the middle phalanx. There are previously demonstrated limitatio ns involving the first and second toes at the level of the distal aspect of the proximal phalanx and proximal aspect of the middle phalanx, respectively. There has been amputation of the distal aspect o f the fifth proximal phalanx. IMPRESSION: 1. Interval amputation of the third toe at the level of the distal aspect of the middle phalanx. 2. Prior partial amputation of the first and second and fifth toes, described above. Electronically signed by: Maryjane Mccracken MD (06/02/2021 2:08 PM) [id number]
[2021-06-02 14:25] VITALS: BP 114/71
--- NOTE | 2021-06-04 09:10 | PATHOLOGY ---
[facility] Accession Number: [id number] . 01 Material submitted: . toe - RIGHT FOOT 3RD TOE. Modifiers: right, third . 01 Clinical history: . INFECTED RT FOOT 3RD TOE RT 3RD TOE AMPUTATION . 02 Diagnosis: Toe and separate segments of bone with attached articular cartilage and soft tissues, distal right third toe amputation: - Focal ulceration and acute inflammation of third toe with pseudoepitheliomatous hyperplasia of skin bordering ulcer. - Focal cortical destruction, fibrosis, and bony remodeling of distal phalangeal bone - no evidence of acute osteomyelitis. (JPM:louisa; 06/03/2021) MBR 06/03/2021 1537 Local . 02 Electronically signed: . Weston Olmos MD, Pathologist NPI- [id number] . 01 Gross description: . The specimen is received in formalin, labeled "Gustavo Meza, right foot 3rd toe" and the specimen consists of a disarticulated portion of toe (1.2 cm in length by 2.4 x 1.3 cm) without an attached nail and with skin only covering one side. The epidermis displays a yellow-chirinos roughened thickened and ulcerated lesion (1.9 x 1.2 cm) that involves the surgical margin (inked black). The articular surface is smooth and unremarkable. Sectioning reveals hard unremarkable underlying bone. Also received in the same container are 2 chirinos-white, soft and focally calcified irregular tissue aggregating 1.5 x 0.8 x 0.3 cm and sectioning reveals egan unremarkable cut surfaces. . Also received in the same container is a portion of bone (0.4 cm in length x 0.9 x 0.6 cm) which is surfaced with a smooth and unremarkable articular surface. The surgical margin is inked black. Cost Recorder sections are submitted following decalcification in A1-A2 to include the entirety of the additional bone segment submitted in A2. (OHOGAMIUT; 06/02/2021) DKA/DKA 06/03/2021 1417 Local . 02 Pathologist provided ICD-10: L08.9, L85.8, L97.519 . 02 CPT . 056201, [id number] Specimen Comment: A courtesy copy of this report has been sent to [phone], [phone] Specimen Comment: [id number] Specimen Comment: Report sent to / DR ARNOLD Performed at: 01 [facility] [address], [place] [id number] MD Tee Randolph MD Phone: [phone] Performed at: 02 [facility] [address], [place] [id number] MD Weston Olmos MD Phone: [phone]
== END 2021-06-02 15:10 | disposition home or self-care (01) ==
LOC: SURG 10:01
PROVIDERS: ATTEND Podiatrist Foot & Ankle Surgery
DX: M86.8X7 Other osteomyelitis, ankle and foot (principal); I10 Essential (primary) hypertension; I48.91 Unspecified atrial fibrillation; E66.9 Obesity, unspecified; N40.0 Benign prostatic hyperplasia without lower urinary tract symptoms; G47.30 Sleep apnea, unspecified; M19.90 Unspecified osteoarthritis, unspecified site; F41.9 Anxiety disorder, unspecified; F32.9 Major depressive disorder, single episode, unspecified; Z79.82 Long term (current) use of aspirin; Z79.899 Other long term (current) drug therapy; Z98.890 Other specified postprocedural states
CPT/HCPCS: 28150; 36415; 73630; 80053; 85025; 87075; 87077; 88305; 88311; A4930; A6223; A6449; A6450; J1100; J2405; J2704; J3010; J3370; J3490; J7050; A4657; A6443; J7030

== ENCOUNTER → 2021-06-19 | Outpatient (CLI) | payer MEDICARE ==
[2021-06-02 14:25] VITALS: BP 114/71
[~2021-06-19] MED LIST changes: +FLEC100T PO; -HYDROmorphone 2 MG/ML INJ. IVP PRN; -IV RINGERS,LACTATED 1000ML 1,000 ML IV SCH; -MORPHINE SULFATE 2 MG/ML INJ. IVP PRN; -PROCHLORPERAZINE 10 MG/2 ML VIAL. IVP PRN; -VANCOMYCIN 1 GM in IV NORMAL SALINE 250ML 250 ML IV ONE; -fentaNYL PF VIAL 100 MCG/2 ML VIAL IVP PRN
== END ==
LOC: SPEC 17:00
PROVIDERS: ATTEND Podiatrist
DX: L97.511 Non-pressure chronic ulcer of other part of right foot limited to breakdown of skin (principal); M86.271 Subacute osteomyelitis, right ankle and foot
CPT/HCPCS: 87075